=== PATIENT | male | born 1940 | race Caucasian/White ===

== ENCOUNTER → 2016-10-21 | Outpatient (CLI) | payer OTHER ==
[2016-10-21 13:35] LABS: ALT/SGPT 18 U/L (12-78); AST/SGOT 16 U/L (15-37); BLOOD UREA NITROGEN 18 mg/dl (7-18); BUN/CREATININE RATIO 15.1 (10-20); CALCIUM 8.6 mg/dl (8.5-10.1); CARBON DIOXIDE 29 mmol/L (21-32); CHLORIDE 107 mmol/L (98-107); GLUCOSE 86 mg/dl (70-99); POTASSIUM 3.6 mmol/L (3.5-5.1); SODIUM 142 mmol/L (136-145)
[2016-10-21 13:38] LABS: ALB/GLOB RATIO 0.9 (0.9-2); ALKALINE PHOSPHATASE 135 U/L (45-117); CHOLESTEROL 156 mg/dl (0-200); CHOLESTEROL/HDL RATIO 3.2; HDL CHOLESTEROL 49 mg/dl; LDL CHOLESTEROL CALCULATED 90 mg/dl; TRIGLYCERIDES 87 mg/dl (0-150); VERY LOW DENSITY LIPOPROT CALC 17 mg/dl
== END | disposition home or self-care (01) ==
LOC: C.LABPBG 08:38
PROVIDERS: ATTEND Family Medicine
DX: M25.561 Pain in right knee (principal); M25.562 Pain in left knee; G25.81 Restless legs syndrome; I10 Essential (primary) hypertension; E78.5 Hyperlipidemia, unspecified; F41.8 Other specified anxiety disorders

== ENCOUNTER → 2017-05-12 | Outpatient (CLI) | payer OTHER ==
[2017-05-12 12:34] LABS: HEMATOCRIT 37.7 % (42-52); MEAN CELL VOLUME 88.7 fL (80-100); MEAN CORPUSCULAR HEMOGLOBIN 29.2 pg (25-34); MEAN CORPUSCULAR HGB CONC 32.9 g/dl (32-36); MEAN PLATELET VOLUME 10.4 fL (7.4-10.4); PLATELET COUNT 295 K/uL (130-400); RED BLOOD COUNT 4.25 M/uL (4.7-6.1); WHITE BLOOD COUNT 7.88 K/uL (4.8-10.8)
[2017-05-12 13:08] LABS: ALT/SGPT 16 U/L (12-78); AST/SGOT 15 U/L (15-37); BLOOD UREA NITROGEN 19 mg/dl (7-18); BUN/CREATININE RATIO 16.1 (10-20); CALCIUM 8.2 mg/dl (8.5-10.1); CARBON DIOXIDE 28 mmol/L (21-32); CHLORIDE 107 mmol/L (98-107); GLUCOSE 83 mg/dl (70-99); HDL CHOLESTEROL 48 mg/dl; POTASSIUM 3.4 mmol/L (3.5-5.1); SODIUM 142 mmol/L (136-145)
[2017-05-12 13:10] LABS: ALB/GLOB RATIO 0.9 (0.9-2); ALKALINE PHOSPHATASE 108 U/L (45-117); CHOLESTEROL 134 mg/dl (0-200); CHOLESTEROL/HDL RATIO 2.8; LDL CHOLESTEROL CALCULATED 70 mg/dl; TRIGLYCERIDES 78 mg/dl (0-150); VERY LOW DENSITY LIPOPROT CALC 16 mg/dl
== END | disposition home or self-care (01) ==
LOC: C.LABPBG 07:37
PROVIDERS: ATTEND Family Medicine
DX: I10 Essential (primary) hypertension (principal); E78.5 Hyperlipidemia, unspecified

== ENCOUNTER → 2017-06-16 | Outpatient (CLI) | payer OTHER ==
[2017-06-16 12:53] LABS: BASO % 0.4 %; BASO ABS # 0.03 K/uL (0-0.2); COMPLETE YES; EOS % 1.3 %; HEMATOCRIT 38.4 % (42-52); IG% 0.4 %; LYMPH % 27.9 %; LYMPH ABS # 1.98 K/uL (1.2-3.4); MEAN CORPUSCULAR HEMOGLOBIN 30.3 pg (25-34); MEAN CORPUSCULAR HGB CONC 33.3 g/dl (32-36); MEAN PLATELET VOLUME 9.8 fL (7.4-10.4); MONO % 9.7 %; NEUT % 60.3 %; PLATELET COUNT 281 K/uL (130-400); RED BLOOD COUNT 4.22 M/uL (4.7-6.1); WHITE BLOOD COUNT 7.09 K/uL (4.8-10.8)
[2017-06-16 13:17] LABS: BLOOD UREA NITROGEN 20 mg/dl (7-18); BUN/CREATININE RATIO 16.5 (10-20); CALCIUM 8.9 mg/dl (8.5-10.1); CARBON DIOXIDE 27 mmol/L (21-32); CHLORIDE 105 mmol/L (98-107); CREATININE 1.23 mg/dl (0.60-1.40); GLUCOSE 88 mg/dl (70-99); MAGNESIUM 1.6 mg/dl (1.8-2.4); POTASSIUM 3.7 mmol/L (3.5-5.1); SODIUM 139 mmol/L (136-145)
[2017-06-16 13:22] LABS: FERRITIN 274.8 ng/ml (8.0-388.0); TOTAL IRON BINDING CAPACITY 311 mcg/dl (250-450)
== END | disposition home or self-care (01) ==
LOC: C.LABPBG 07:53
PROVIDERS: ATTEND Family Medicine
DX: E87.6 Hypokalemia (principal); D64.9 Anemia, unspecified

== ENCOUNTER 2023-12-14 09:20 | Observation (INO) ==
--- NOTE | 2023-11-17 12:59 | PAT Medication Instructions ---
Medication Instructions Date of Service November 17, 2023 Home Medications Medication Instructions Recorded compress.stocking,knee,reg,med #2 ea 06/21/22 omeprazole 20 mg capsule,delayed 20 mg PO DAILY PRN acid reflux #90 03/10/23 release caps aspirin 81 mg tablet,delayed release (Adult Aspirin Regimen) 81 mg PO QAM calcium phosphate 250 mg-vitamin D3 10 mcg (400 unit) chewable tablet (Caltrate Gummy Bites) 1 tab PO QAM ferrous sulfate 325 mg (65 mg iron) tablet (FeroSul) 325 mg PO Q2D omeprazole 20 mg capsule,delayed release 20 mg PO DAILY PRN acid reflux furosemide 20 mg tablet (Lasix) 20 mg PO QAM duloxetine 30 mg capsule,delayed release 30 mg PO QAM potassium chloride 10 mEq tablet,extended release 10 meq PO QAM DO NOT take the morning of surgery calcium phosphate 250 mg-vitamin D3 10 mcg (400 unit) chewable tablet (Caltrate Gummy Bites) 1 tab PO QAM ferrous sulfate 325 mg (65 mg iron) tablet (FeroSul) 325 mg PO Q2D furosemide 20 mg tablet (Lasix) 20 mg PO QAM potassium chloride 10 mEq tablet,extended release 10 meq PO QAM Take morning of surgery With a small sip of water, OTHERWISE NOTHING TO EAT OR DRINK AFTER MIDNIGHT: aspirin 81 mg tablet,delayed release (Adult Aspirin Regimen) 81 mg PO QAM (unless surgeon directed otherwise) omeprazole 20 mg capsule,delayed release 20 mg PO DAILY PRN acid reflux (if needed) duloxetine 30 mg capsule,delayed release 30 mg PO QAM Take evening before surgery omeprazole 20 mg capsule,delayed release 20 mg PO DAILY PRN acid reflux (if needed) Other Notes If you have any questions please call us at [phone] or [phone] or [phone] or [phone]
--- NOTE | 2023-11-23 09:16 | Anesthesiology Consultation ---
Date of Service November 23, 2023 Assessment & Plan (1) Encounter for pre-operative examination: Chart Review Chart Review: Acceptable Risk for Surgery (pending PCP clearance 12/06/23) and Patient seen in Pre Admission Testing - Awaiting PCP clearance 12/06/23 ([place]) - Patient is NOT an ideal OPJ candidate (currently 23 hour obs) Per PAT appt on 11/23/23, no recent illness/disease exposures, illness related symptoms, or recent illness/disease positive tests. Will leave to surgeon's discretion if preop Covid testing needed Teaching & Discussion Pre-Anesthesia Teaching/Discussion Notes: Instructed NPO after midnight before surgery,except medications with 15 cc of water. Medication instructions provided according to the PAT guidelines. History Surgery Operation Date: 12/14/23 07:15 Proposed Procedures p Left Total Knee Arthroplasty - Nixon Myers MD Height/Weight Height: 5 ft 11 in Weight: 65.7 kg Allergies Allergy/AdvReac Type Severity Reaction Status Date / Time No Known Drug Allergies Allergy Verified 11/16/23 11:01 Medications Home Medications Medication Instructions Recorded Confirmed Last Taken aspirin 81 mg tablet,delayed 81 mg PO QAM 05/30/20 11/16/23 Unknown release (Adult Aspirin Regimen) compress.stocking,knee,reg,med #2 ea 06/21/22 06/06/23 Unknown calcium phosphate 250 mg-vitamin 1 tab PO QAM 09/21/22 11/16/23 Unknown D3 10 mcg (400 unit) chewable tablet (Caltrate Gummy Bites) ferrous sulfate 325 mg (65 mg 325 mg PO Q2D 01/25/23 11/16/23 Unknown iron) tablet (FeroSul) omeprazole 20 mg capsule,delayed 20 mg PO DAILY PRN acid reflux #90 03/10/23 11/16/23 Unknown release caps furosemide 20 mg tablet (Lasix) 20 mg PO QAM 06/06/23 11/16/23 Unknown duloxetine 30 mg capsule,delayed 30 mg PO QAM 11/16/23 11/16/23 Unknown release potassium chloride 10 mEq 10 meq PO QAM 11/16/23 11/16/23 Unknown tablet,extended release Past Medical History Medical History Acid reflux occasional - improved with Omeprazole Anemia likely multifactorial in setting of chronic disease and iron/b12 deficiency per PCP records Benign essential hypertension Chronic kidney disease, stage 3 (moderate) Cognitive impairment "no major issues" per dtr Depression with anxiety Eczema Hyperlipidemia hx-no current meds Restless legs Exercise / Class Metabolic Activity III < 4 Walking/Shop/Light housework (no chest pain or SOB with flat surface ambulation- uses cane ) Past Family History Family History Mother No known health problems Father Stroke Denies family history of Ovarian cancer Prostate cancer Breast cancer Lung cancer Colorectal cancer Past Surgical History Surgical History Hx of colonoscopy S/P hemorrhoidectomy Past Anesthesia History No Hx of Anesthesia Complications and No Family Hx of Anesthesia Complications History of PONV No Hx of PONV and No Hx of Motion Sickness Social History Smoking Status: Never smoker tobacco type: smokeless tobacco Do You Dip or Chew Tobacco: Yes (1 can/day; advised) Hx Alcohol Use: Yes Alcohol type: beer alcohol intake frequency: holidays/special occasions only Hx Substance Use: No substance use type: does not use Review of Systems Patient denies chest pain, shortness of breath, dyspnea on exertion, cough, wheezing, palpitations. No hx of seizures, stroke, PR, apnea/snoring. No hx of blood clots or blood transfusions Physical Exam Vital Signs VITALS BP 170/78 (usually in 130s systolically- will recheck once home later today and call PCP if still elevated; does follow up with PCP prior to surgery) P 61 TEMP 98.0 SP02 100% RESP 16 Constitutional no acute distress ENMT Mouth: no TMJ clicking Thyromental Distance: > or= 3.5 Finger Breadths (3.5) Mallampati Class: II Full upper denture Neck + limited neck extension (mild) Respiratory normal respiratory effort; no respiratory distress Auscultation: lungs clear to auscultation bilaterally; no wheezes Cardiovascular Rate/Rhythm: regular rate and regular rhythm Heart Sounds: no murmur Vessels: no carotid bruit Musculoskeletal Spine: no pain with cervical ROM Extremities: extremities normal to inspection Psychiatric Orientation: alert Lab Results Anesthesia Preop Results Results Anesthesia Widget: WBC 9.38 K/ul (4.8-10.8) 11/23/23 Hgb 11.3 g/dl (14.0-18.0) L 11/23/23 Hct 34.9 % (42.0-52.0) L 11/23/23 Plt 345 K/uL (130-400) 11/23/23 Na 140 mmol/L (136-145) 11/23/23 K 4.1 mmol/L (3.5-5.1) 11/23/23 Cl 105 mmol/L (98-107) 11/23/23 CO2 27 mmol/L (21-32) 11/23/23 BUN 24 mg/dl (6-23) H 11/23/23 Creat 1.32 mg/dl (0.6-1.4) 11/23/23 Glucose Level 93 mg/dl (70-99(Fasting)) 11/23/23 PT 10.7 Seconds (9.0-12.0) 11/23/23 PTT 30 Seconds (21-31) 11/23/23 INR 1.0 (0.9-1.1) 11/23/23 Urine Color Yellow 11/23/23 Urine Appearance Clear (Clear) 11/23/23 Urine pH 5.5 (4.5-7.5) 11/23/23 Urine Specific [place] 1.011 (1.000-1.030) 11/23/23 Urine Protein Negative (Negative) 11/23/23 Urine Glucose (UA) Negative (Negative) 11/23/23 Urine Ketones Negative (Negative) 11/23/23 Urine Blood Negative (Negative) 11/23/23 Urine Nitrite Negative (Negative) 11/23/23 Urine Bilirubin Negative (Negative) 11/23/23 Urine Urobilinogen Negative (Negative) 11/23/23 Urine Leukocyte Esterase Negative (Negative) 11/23/23 Blood Type O Positive 11/23/23 Antibody Screen NEGATIVE 11/23/23 Testing Laboratory Results Anemia- chronic and stable from previous Electrocardiogram Ectopic atrial rhythm at 60bpm (Discussed with Dr. Watts- patient not complaining of any cardiac symptoms- has PCP clearance scheduled- can proceed as scheduled at this time) Chest X-Ray Date: 11/23/23 Findings: + NAD
--- NOTE | 2023-11-27 10:25 | History & Physical Report ---
Date of Service November 27, 2023 Assessment & Plan (1) Bilateral primary osteoarthritis of knee: Plan: Severe end-stage bilateral knee osteoarthritis. Most symptomatic on the left. Proceed with left knee replacement. Risk and benefits discussed. History of Present Illness Chief Complaint: Chronic bilateral knee pain left greater than right Primary Care Provider: Jaqueline Maldonado DO 83-year-old male with chronic bilateral knee pain left greater than right with severe end-stage bilateral knee osteoarthritis. Failure of conservative management. Patient denies headaches, sweats, fevers, chills, double vision, blurred vision, cough, sore throat, dysphagia, chest pain, sob, wheezing, n/v/d/c, numbness, tingling, fatigue, urinary symptoms, mood disorders. ROS positive for hypertension, anxiety/depression, anemia, acid reflux. Allergies Allergy/AdvReac Type Severity Reaction Status Date / Time No Known Drug Allergies Allergy Verified 11/16/23 11:01 Home Medications Medication Instructions Recorded Confirmed Type aspirin 81 mg tablet,delayed 81 mg PO QAM 05/30/20 11/16/23 History release (Adult Aspirin Regimen) compress.stocking,knee,reg,med #2 ea 06/21/22 06/06/23 Rx calcium phosphate 250 mg-vitamin 1 tab PO QAM 09/21/22 11/16/23 History D3 10 mcg (400 unit) chewable tablet (Caltrate Gummy Bites) ferrous sulfate 325 mg (65 mg 325 mg PO Q2D 01/25/23 11/16/23 History iron) tablet (FeroSul) omeprazole 20 mg capsule,delayed 20 mg PO DAILY PRN acid reflux #90 03/10/23 11/16/23 Rx release caps furosemide 20 mg tablet (Lasix) 20 mg PO QAM 06/06/23 11/16/23 History duloxetine 30 mg capsule,delayed 30 mg PO QAM 11/16/23 11/16/23 History release potassium chloride 10 mEq 10 meq PO QAM 11/16/23 11/16/23 History tablet,extended release Past Med/Surg History Medical History Chronic kidney disease, stage 3 (moderate) Acid reflux occasional - improved with Omeprazole Anemia likely multifactorial in setting of chronic disease and iron/b12 deficiency per PCP records Benign essential hypertension Cognitive impairment "no major issues" per dtr Depression with anxiety Eczema Hyperlipidemia hx-no current meds Restless legs Surgical History Hx of colonoscopy S/P hemorrhoidectomy Family History Mother No known health problems Father Stroke Denies family history of Ovarian cancer Prostate cancer Breast cancer Lung cancer Colorectal cancer Social History Smoking Status: Never smoker Tobacco Type: Smokeless Tobacco (Dip or Chew) Age Started Using Tobacco: 13; Second Hand Exposure: Yes (hx- smoked); Do You Dip or Chew Tobacco: Yes (1 can/day; advised); Hx Alcohol Use: Yes Alcohol type: beer Alcohol Intake Frequency: 4 or More x per/Week Alcohol Intake Frequency Comment: a beer a day Hx Substance Use: No Preferred Language: [place] Communication Ability: Effective Visual Impairment: Limited Hearing Ability: Normal Resource Recovery Specialist Required: No Beliefs That Will Affect Care: None marital status: / marital status details: lost in Sep 2020 Current Living Situation: Alone current occupational status: retired How many Children do You have: 1 Feels Safe at Home: Yes Childhood Exposure to Second-Hand Smoke: No Diet: regular Diet Comment: regular caffeine: Yes (tea) during the past year weight has: remained stable Dental Care, Regularly: Yes Physical Activity Frequency: Daily Seatbelt Use: always Sunscreen Use: No Assistive Devices: Denture - Upper, Denture - Lower and Glasses Review of Systems All systems reviewed & are unremarkable except as noted in HPI & below Physical Exam Constitutional: WD/WN, vitals as above Respiratory: normal respiratory effort; no respiratory distress Cardiovascular: Rate/Rhythm: regular rate and regular rhythm Musculoskeletal: Antalgic gait bilateral varus knees bilateral mild effusion bilateral 20 to 90 degrees range of motion bilateral. Normal strength. Chronic edema left leg with lymphedema with venous stasis disease negative ultrasound. Skin: no rashes, warm and dry Neurologic: normal touch/pain/proprioception Psychiatric: A+Ox3, euthymic affect Results & Data Diagnostic Findings Tricompartmental osteoarthritis mainly medial compartment and patellofemoral joint with [id number] medial compartment with some subluxation femur medial and tibia, some bone loss, some evidence of chondrocalcinosis and lateral meniscus bilateral. Level of arthritis equal to both knees with severe end- stage arthritis both knees.
[~2023-12-14 09:20] MED LIST: BUPIVACAINE 0.5 % 5 MG/1 ML PF 10ML VIAL ONE; DEXAMETHASONE SOD INJ 4 MG/ML VIAL ONE; LIDOCAINE 2% 2 ML VIAL/AMP(20MG/ML) INFIL ONE; ONDANSETRON INJ 2 MG/ML 2 ML VIAL ONE; PROPOFOL IV EMULSION 10 MG/ML 20 ML VIAL IV ONE; ROPIVACAINE 0.5% 5 MG/ML 30 ML VIAL ONE; fentaNYL citrate PF 100 MCG/2 ML VIAL ONE
--- NOTE | 2023-12-14 09:38 | History & Physical Bridge Note ---
Date of Service December 14, 2023 History & Physical Bridge Note I have examined the patient, reviewed the History & Physical and in the interval since the performance of the History & Physical I have noted the following changes of clinical significance: no changes noted
[2023-12-14] MEDS: ACETAMINOPHEN 500 MG TAB PO SCH ×2 (09:48→15:44)
[2023-12-14] MEDS: CeleBREX 200 MG CAP PO SCH (09:49)
[2023-12-14] MEDS: LR 60ML/HR IV SCH (09:49)
[2023-12-14] MEDS: METOCLOPRAMIDE HCL 10 MG TABLET PO SCH (09:49)
[2023-12-14] MEDS: FAMOTIDINE 20 MG TAB PO SCH (09:49)
[2023-12-14] MEDS: GABAPENTIN 300 MG CAP PO SCH (09:49)
[2023-12-14] MEDS: dexAMETHasone**PF** 10 MG/ML VIAL IV SCH (09:50)
[2023-12-14] MEDS: LR 500ML BOLUS, THEN 15ML/HR IV SCH (10:05)
[2023-12-14] MEDS ORDERED: ePHEDrine sulfate 50 MG/ML AMP IV PRN (10:50)
[2023-12-14] MEDS ORDERED: PROMETHAZINE HCL 6.25 MG in SODIUM CHLORIDE 0.9% 50 ML IV PRN (10:50)
[2023-12-14] MEDS ORDERED: HYDROmorphone INJ 1 MG/ML SYRINGE IV PRN (10:50)
[2023-12-14] MEDS ORDERED: ATROPINE SULFATE 0.1 MG/ML 10ML SYR IV PRN (10:50)
[2023-12-14] MEDS: TRANEXAMIC ACID 1,000 MG **IV Pre-op IV SCH (10:58)
[2023-12-14] MEDS: ceFAZolin 2000MG 2,000 MG/15 ML SYR IV SCH (11:15)
[2023-12-14] MEDS: ORTHO JOINT ANESTHETIC ONE (12:02)
[2023-12-14] MEDS ORDERED: ePHEDrine sulfate 50 MG/ML AMP ONE (12:07)
[2023-12-14] MEDS: ROPIV 0.5% 246mg, Ketorolac 30mg, EPINEPHrine 0.5mg in NSS INFIL SCH (12:28)
[2023-12-14] MEDS: TRANEXAMIC ACID 1,000 MG **IV Intra-op IV SCH (13:00)
--- NOTE | 2023-12-14 13:15 | Operative Report ---
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 Left knee has a flexion contracture varus knee with ra diographs demonstrate [id number] medial compartment with bone loss medial compartment Description of Procedure Patient taken to the operating room the size under spinal MAC regional block anesthesia. Patient was placed supine on the operating table. A pneumatic tourniquet was placed about the left upper thigh. The left lower extremity was prepped and draped in sterile fashion. Knee exam demonstrated relatively thin leg with 15 to 20 degree flexion contracture with further flexion to 125 degrees. There is no pseudolaxity.. The leg was elevated exsanguinated with an Esmarch bandage and pneumatic tourniquet was raised to 275 millimeters of mercury. Skin incised sharply in longitudinal fashion. Subcutaneous flaps elevated. Incision was made through the medial retinaculum extending up in the mid third of the quadriceps tendon and down to the medial tibial tubercle. Intra-articular findings demonstrated severe end-stage medial compartment osteoarthritis bone loss the medial compartment and tricompartmental arthritic changes grade 3 changes other compartments. Chronic ACL tear. There were calcium deposits throughout the knee embedded into the articular surfaces and into the synovium with very edematous thickened synovium in the suprapatellar pouch some areas with calcium deposits within that synovial tissue. The [employer] triathlon total knee arthroplasty system was used. To expose the knee the infrapatellar fat pad was resected. The meniscal remnants and cruciate ligaments were resected. The anterior fat pad over the femur in the area of the location of the anterior flange of the femoral component was resected. Multiple calcium deposits were removed including a partial synovectomy using electrocautery synovectomy technique to remove the thickened inflamed synovium and suprapatellar pouch. The calcium deposits that were embedded in the synovium were removed along with the synovium tissue. The lateral synovial bands were released. The femur was exposed. An intramedullary drill hole was made into the canal. A guide maria was placed. Distal femoral cutting guide was adjusted to resect a 5 degree valgus cut with 10 millimeters distal femur resected. The knee was extended and a subperiosteal peel lateral release was performed around the patella. Patella width was measured and width was reproduced using a freehand cut technique and a 36 symmetrical patella component. The 3 drill holes were made and the excess lateral facet was beveled off to prevent any impingement. Attention was taken back to the femur which was exposed with retractors and the femoral sizing guide was pinned in position. The drill holes were placed in 3 of external rotation to match the epicondylar axis. The femur sized for a 6 left component. The 4-in-1 cutting block was placed and then the anterior posterior and chamfer cuts are made. The tibia was then subluxed. The external tibial cutting guide was adjusted to make a perpendicular cut to the long axis of the tibia below the most deficient bone loss side. Cut was adjusted for slope. A lamina superintendent transmission was used and the flexion extension gaps were balanced. Minimal medial releases were required. All posterior osteophytes removed. All meniscal remnants were resected. The tibia exposed and the trial tibial component size 5 was externally rotated in line with the tibial tubercle and pinned in position. The punch for stem was used. The notch cutting device was centered appropriately and the femoral notch cut was made. The femoral trial was inserted. Trial tibial inserts were placed and size 11 PS gave balanced ligaments through flexion and extension. Patella tracking was assessed. The patella tracked centrally. The trial components were then removed and the orthomix anesthetic cocktail was injected per protocol. The knee was then copiously irrigated with pulsatile lavage saline solution. Final components were then cemented with Refobacin cement. Xperience irrigation placed over metal compoments prior to polyethylene insertion. Final components were Nirav triathlon size 6 left posterior stabilized femoral component, size 5 tibial primary baseplate with a 11 mm X.3 polyethylene tibial bearing insert and a X.3 polyethylene 36 x 10 mm patella. After the cement cured further pulsatile lavage irrigation was then performed with Xperience and 2 Hemovac drains were brought out laterally. The quadriceps tendon and medial retinaculum were closed with figure of 8 #1 Vicryl sutures. The knee was taken through full range of motion and the repair was secure. Knee range of motion was 0 through 130 degrees. The subcutaneous tissues were closed with 2-0 Vicryl sutures. Skin was closed with surgical glue luz marina. Lisandro and Acticoat superficial wound VAC was applied. The patient tolerated the procedure well. Turner MALONEY was my physician assistant professor of mathematics who participated as reference assistant and was involved in all aspects of the procedure including patient positioning prepping and draping,leg positioning ,soft tissue retraction and instrument management and participated in the closing and superficial wound VAC and will p articipate in postoperative care of the patient. The patient tolerated the procedure well. I attest to the content of the Intraoperative Record and any orders documented therein. Any exceptions are noted below.
[2023-12-14] MEDS ORDERED: MAGNESIUM HYDROXIDE SUSP 30 ML UDC PO PRN (14:46)
[2023-12-14] MEDS ORDERED: ONDANSETRON INJ 2 MG/ML 2 ML VIAL IV PRN (14:46)
[2023-12-14] MEDS ORDERED: NALOXONE HCL 0.4 MG/1 ML VIAL/CARP IV PRN (14:46)
[2023-12-14] MEDS ORDERED: bisacodyL 10 MG SUPP PR PRN (14:46)
[2023-12-14] MEDS ORDERED: diphenhydrAMINE 50 MG/ML VIAL IV PRN (14:46)
[2023-12-14] MEDS ORDERED: HYDROmorphone INJ 0.5 MG/0.5 ML SYR IV PRN (14:46)
--- NOTE | 2023-12-14 15:01 | Anesthesiology Progress Note ---
Date of Service December 14, 2023 Anesthesia Post Procedure Vital Signs Vital Signs: Temp Pulse Pulse Resp BP Pulse Ox O2 Del Method 12/14/23 14:40 36.5 C 65 20 129/64 98 Room Air 12/14/23 14:30 37.1 C 67 15 137/65 97 Room Air 12/14/23 14:20 37.1 C 68 16 125/62 97 Room Air 12/14/23 14:10 66 18 130/63 98 Room Air 12/14/23 14:00 71 17 121/70 100 Room Air 12/14/23 13:50 69 16 121/60 100 Oxymask 12/14/23 13:41 36.8 C 75 18 111/49 L 100 Oxymask 12/14/23 09:47 36.8 C 69 20 154/65 H 99 Room Air O2 Flow Rate 12/14/23 14:40 12/14/23 14:30 12/14/23 14:20 12/14/23 14:10 12/14/23 14:00 12/14/23 13:50 3 12/14/23 13:41 5 12/14/23 09:47 Pain Intensity Left Knee: Pain Intensity: 0 Transfer of Care Handoff Completed per policy Notes Mental Status: alert / awake / arousable and participated in evaluation Nausea / Vomiting: adequately controlled Pain: adequately controlled Airway Patency, RR, SpO2: stable & adequate BP & HR: stable & adequate Hydration State: stable & adequate Anesthetic Complications: no major complications apparent and Pt Satisfied with anesthetic care
--- NOTE | 2023-12-14 15:10 | XRay Report ---
LEFT KNEE 2 VIEWS History: Left total knee arthroplasty. Degenerative arthritis. Postop. FINDINGS: The patient is status post a left total knee arthroplasty. The hardware is intact. No fract ure or dislocation. Skin luz marina and surgical drains are in place. IMPRESSION: Left total knee arthroplasty. No evidence for hardware complication. ACT 112: Negative or not required by law. Electronically signed by: Esau Heath M.D. 12/14/2023 3:08 PM
[2023-12-14] MEDS: SODIUM CHLORIDE 0.9% 1,000 ML IV SCH (15:44)
[2023-12-14] MEDS: ceFAZolin 1000MG 1,000 MG/7.5 ML SYR IV SCH (20:33)
[2023-12-14] MEDS: SENNA 8.6 MG TAB PO SCH (20:33)
[2023-12-14] MEDS: ASPIRIN 81 MG ECTAB PO SCH (20:34)
[2023-12-14] MEDS: DOCUSATE SODIUM 100 MG CAP PO SCH (20:34)
[2023-12-15 06:24] LABS: Hematocrit (blood only) 32.1 % (42.0-52.0); Hemoglobin 10.7 g/dl (14.0-18.0); Mean Corpuscular Hemoglobin 30.1 pg (25.0-34.0); Mean Corpuscular Hgb Conc 33.3 g/dL (32.0-36.0); Mean Corpuscular Volume 90.2 fL (80.0-100.0); Mean Platelet Volume 9.6 fL (9.4-12.4); Platelet Count 328 K/uL (130-400); RDW Coefficient of Variation 13.4 % (11.5-14.5); RDW Standard Deviation 44.2 fL (36.4-46.3); Red Blood Count 3.56 M/uL (4.70-6.10); White Blood Count 20.36 K/ul (4.8-10.8)
[2023-12-15 06:50] LABS: BUN Creatinine Ratio 18.2 (10-20); Calcium 6.4 mg/dl (8.6-10.3); Creatinine Clr Calc Pharmacy 29.3 ml/min; Est GFR (African American) 40.8 ml/min; Est GFR (Non-African American) 35.2 ml/min; Potassium 4.2 mmol/L (3.5-5.1)
[2023-12-15] MEDS: DULoxetine HCL 30 MG CAP PO SCH (08:07)
[2023-12-15] MEDS: PANTOprazole 40 MG TAB PO SCH (08:07)
[2023-12-15] MEDS: MULTIVITAMIN TAB PO SCH (08:07)
[2023-12-15] MEDS: POTASSIUM CHLORIDE 10 MEQ TABCR PO SCH (08:07)
--- NOTE | 2023-12-15 08:37 | Orthopedic Progress Note ---
Date of Service December 15, 2023 Assessment & Plan (1) Bilateral primary osteoarthritis of knee: Plan: POD 1 s/p left total knee arthroplasty PT/OT protocols. Weightbearing as tolerated. DVT prophylaxis-aspirin p.o. twice daily, Chris, GENESIS garcia. Pain management as written. Leukocytosis-likely secondary to preoperative steroids and or surgical stress. Patient currently asymptomatic. DC planning-patient is planning for home health services upon discharge. Admission and Anticipated Discharge Date Admission Date: December 14, 2023 Subjective Postop day 1 patient sitting at the bedside eating breakfast. Complains of some mild discomfort proximal to the patella. No other complaints at this time. Denies shortness of breath, chest pain, lightheadedness. Patient is hoping to go home today. Physical Exam Physical Exam: Dressings are clean, dry, and intact. Calves are soft nontender. Neurovascular intact. Toes are mobile. He has good dorsiflexion plantarflexion of the left foot. HV drainage 50cc this AM. Results & Data Vital Signs (Past 12 Hours) Vital Signs Temp Pulse Pulse Resp BP Pulse Ox O2 Del Method 12/15/23 07:17 36.5 C 67 18 152/80 H 99 Room Air 12/15/23 03:17 36.8 C 67 16 156/72 H 97 Room Air 12/14/23 23:14 36.5 C 67 16 150/74 H 97 Room Air Laboratory Results Laboratory Results WBC 20.36 K/ul (4.8-10.8) H 12/15/23 05:34 RBC 3.56 M/uL (4.70-6.10) L 12/15/23 05:34 Hgb 10.7 g/dl (14.0-18.0) L 12/15/23 05:34 Hct 32.1 % (42.0-52.0) L 12/15/23 05:34 MCV 90.2 fL (80.0-100.0) 12/15/23 05:34 MCH 30.1 pg (25.0-34.0) 12/15/23 05:34 MCHC 33.3 g/dL (32.0-36.0) 12/15/23 05:34 RDW Std Deviation 44.2 fL (36.4-46.3) 12/15/23 05:34 RDW Coeff of Preet 13.4 % (11.5-14.5) 12/15/23 05:34 Plt Count 328 K/uL (130-400) 12/15/23 05:34 MPV 9.6 fL (9.4-12.4) 12/15/23 05:34 Sodium 140 mmol/L (136-145) 12/15/23 05:34 Potassium 4.2 mmol/L (3.5-5.1) 12/15/23 05:34 Chloride 104 mmol/L (98-107) 12/15/23 05:34 Carbon Dioxide 24 mmol/L (21-32) 12/15/23 05:34 Anion Gap 12 (3-11) H 12/15/23 05:34 BUN 32 mg/dl (6-23) H 12/15/23 05:34 Creatinine 1.76 mg/dl (0.6-1.4) H 12/15/23 05:34 Est Cr Clr Drug Dosing 29.3 ml/min 12/15/23 05:34 Est GFR ( Amer) 40.8 ml/min 12/15/23 05:34 Est GFR (Non-Af Amer) 35.2 ml/min 12/15/23 05:34 BUN/Creatinine Ratio 18.2 (10-20) 12/15/23 05:34 Glucose 114 mg/dl (70-99(Fasting)) H 12/15/23 05:34 Calcium 6.4 mg/dl (8.6-10.3) L 12/15/23 05:34 Impressions Knee X-Ray 12/14/23 13:48 LEFT KNEE 2 VIEWS History: Left total knee arthroplasty. Degenerative arthritis. Postop. FINDINGS: The patient is status post a left total knee arthroplasty. The hardware is intact. No fracture or dislocation. Skin luz marina and surgical drains are in place. IMPRESSION: Left total knee arthroplasty. No evidence for hardware complication. ACT 112: Negative or not required by law. Electronically signed by: Esau Heath M.D. 12/14/2023 3:08 PM
--- NOTE | 2023-12-15 09:02 | Hospitalist Consultation ---
Date of Consultation December 15, 2023 Assessment & Plan (1) S/P total knee arthroplasty: S/p left TKA on 12/13, doing well postoperatively Leukocytosis of 20 likely secondary to intraoperative steroids and stress response Pain control, bowel regimen, management postop as per orthopedic surgery Wound vac in place and will go home with this (2) Chronic kidney disease, stage 3 (moderate): Baseline creatinine 1.3, here with acute kidney injury with creatinine up to 1.76 Give 1 L of LR at 125 MLS per hour today, repeat BMP at 1200 and if improved, can go home and follow as outpt. He is eating and drinking Bladder scan as feels he is having trouble voiding Avoid nephrotoxic agents and ensure proper renal dosing of medications Holding home Lasix and will also hold home potassium while not on Lasix-HOLD lasix on discharge until seen by PCP (3) Hypocalcemia: Ca++ level low at 6.4, most recent Vit D level normal 1 year ago give IV calcium 1000mg today and f/u with PCP to repeat vit D levels, etc as outpt (4) Anemia: Mild, hemoglobin 10.7 down from baseline of 11.3 postoperatively Previous history of B12 deficiency but most recent levels are normal and he is not on supplementation as per home medication list Is on iron pills-continue Follow CBC as outpt (5) Acid reflux: No acute issues, continue PPI (6) Benign essential hypertension: Blood pressures mildly elevated Home Lasix is on hold and will continue to hold Follow blood pressures (7) Depression with anxiety: No acute issues, continue home Cymbalta (8) Hyperlipidemia: Not currently on medication (9) Restless legs: Not on medication for such, continue iron replacement Plan DVT prophylaxis-SCDs, GENESIS hose, aspirin twice daily Disposition-ok to discharge to home if repeat creatinine improved and not retaining urine on bladder scan discussed care with Ortho AMARA Tompkins History of Present Illness Reason for Consultation: Postop management Requesting Physician: Dr. Myers Attending Physician: Nixon Myers MD History of Present Illness This patient is an 83-year-old male with a history of CKD stage III, B12 and iron deficiency anemia, HTN, depression/anxiety, hyperlipidemia, bilateral OA of knees, GERD, lumbar radiculopathy, and chronic venous insufficiency who was admitted to the hospital after having left total knee arthroplasty on 12/14/2023. He feels well on POD#1 and is anxious to get home. He has mild painin left knee. Denies headache, lightheadedness, nausea, abd pain, CP, or SOB. He moved his bowels this AM. He does feel like he needs to urinate but can't get his urine out. I discussed his care with AMARA Tompkins with Ortho Allergies Allergy/AdvReac Type Severity Reaction Status Date / Time No Known Drug Allergies Allergy Verified 12/14/23 09:52 Home Medications Medication Instructions Recorded Confirmed Type aspirin 81 mg tablet,delayed 81 mg PO QAM 05/30/20 12/14/23 History release (Adult Aspirin Regimen) compress.stocking,knee,reg,med #2 ea 06/21/22 12/06/23 Rx calcium phosphate 250 mg-vitamin 1 tab PO QAM 09/21/22 12/14/23 History D3 10 mcg (400 unit) chewable tablet (Caltrate Gummy Bites) ferrous sulfate 325 mg (65 mg 325 mg PO Q2D 01/25/23 12/14/23 History iron) tablet (FeroSul) duloxetine 30 mg capsule,delayed 30 mg PO QAM 11/16/23 12/14/23 History release potassium chloride 10 mEq 10 meq PO QAM 11/16/23 12/14/23 History tablet,extended release omeprazole 20 mg capsule,delayed 20 mg PO DAILY PRN acid reflux #90 11/30/23 12/14/23 Rx release caps furosemide 20 mg tablet (Lasix) See Rx Instructions PO QAM #60 tabs 12/06/23 12/14/23 Rx acetaminophen 500 mg tablet 1,000 mg (2 x 500 mg) PO Q8 14 12/15/23 Rx (Tylenol Extra Strength) days #84 tabs aspirin 81 mg tablet,delayed 81 mg PO BID 30 days #60 tabs 12/15/23 Rx release oxycodone 5 mg tablet 5 mg PO Q4H PRN pain #30 tabs 12/15/23 Rx polyethylene glycol 3350 17 gram 17 g PO DAILY PRN constipation #5 12/15/23 Rx oral powder packet (Miralax) ea Patient History Medical History Osteoarthritis Chronic kidney disease, stage 3 (moderate) Acid reflux occasional - improved with Omeprazole Anemia likely multifactorial in setting of chronic disease and iron/b12 deficiency per PCP records Benign essential hypertension Cognitive impairment "no major issues" per dtr Depression with anxiety Eczema Hyperlipidemia hx-no current meds Restless legs Surgical History (Updated 12/15/23 @ 09:04 by Juliana Rogers MD) S/P total knee arthroplasty Hx of colonoscopy S/P hemorrhoidectomy Family History Mother No known health problems Father Stroke Denies family history of Ovarian cancer Prostate cancer Breast cancer Lung cancer Colorectal cancer Social History Smoking Status: Never smoker Tobacco Type: Smokeless Tobacco (Dip or Chew) Age Started Using Tobacco: 13; Second Hand Exposure: Yes (hx- smoked); Do You Dip or Chew Tobacco: Yes (1 can/day; advised); Hx Alcohol Use: Yes Alcohol type: beer Alcohol Intake Frequency: 4 or More x per/Week Alcohol Intake Frequency Comment: a beer a day Hx Substance Use: No Preferred Language: Stateless Communication Ability: Effective Visual Impairment: Limited Hearing Ability: Normal Market 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 Required: No Beliefs That Will Affect Care: None marital status: / marital status details: lost in Sep 2020 Current Living Situation: Alone current occupational status: retired How many Children do You have: 1 Feels Safe at Home: Yes Childhood Exposure to Second-Hand Smoke: No Diet: regular Diet Comment: regular caffeine: Yes (tea) during the past year weight has: remained stable Dental Care, Regularly: Yes Physical Activity Frequency: Daily Seatbelt Use: always Sunscreen Use: No Assistive Devices: Walker Review of Systems Review of Systems: All systems reviewed & are unremarkable except as noted in HPI & below Physical Exam Constitutional: WD/WN, vitals as above Neck: trachea midline, no thyromegaly Respiratory: normal respiratory effort, lungs clear to auscultation Cardiovascular: RRR, no murmur, no edema Chest (Breasts): Chest: normal inspection of chest Musculoskeletal: Extremities: + extremities abnormal to inspection (left knee with dressing,wound vac with bloody drainage in place), no cyanosis and no clubbing Skin: no rashes, warm and dry Neurologic: moves all extremities and awake; no focal motor deficits Psychiatric: A+Ox3, euthymic affect Results & Data Results & Data Vital Signs (Past 12 Hours) Vital Signs Temp Pulse Pulse Resp BP Pulse Ox O2 Del Method 12/15/23 07:17 36.5 C 67 18 152/80 H 99 Room Air 12/15/23 03:17 36.8 C 67 16 156/72 H 97 Room Air 12/14/23 23:14 36.5 C 67 16 150/74 H 97 Room Air Laboratory Results CBC, BMP reviewed PG Care Time/CCT Total # of Minutes Spent Total Time Spent with Patient: Total time spent is greater than 50% in coordination of care (as documented) at patient's floor/unit and/or counseling patient: Coding Level of Care Code 32576 IN/OBS CONSULT LVL 3,45M Diagnoses S/P total knee arthroplasty Z96.659 Chronic kidney disease, stage 3 (moderate) N18.30 Hypocalcemia E83.51 Anemia D64.9 Acid reflux K21.9 Benign essential hypertension I10 Depression with anxiety F41.8 Hyperlipidemia E78.5 Restless legs G25.81
[2023-12-15] MEDS: CALCIUM GLUCONATE 1,000 MG/60 ML BAG IV STA (10:05)
[2023-12-15] MEDS: LACTATED RINGER'S 1,000 ML IV SCH (10:05)
[2023-12-15 12:55] LABS: Calcium 6.9 mg/dl (8.6-10.3); Potassium 3.9 mmol/L (3.5-5.1)
[2023-12-15 13:01] LABS: BUN Creatinine Ratio 19.8 (10-20); Creatinine Clr Calc Pharmacy 31.8 ml/min; Est GFR (African American) 45.1 ml/min; Est GFR (Non-African American) 38.9 ml/min
[2023-12-15] MEDS: TAMSULOSIN HCL 0.4 MG CAP PO ONE (14:07)
[2023-12-15] MEDS: oxyCODONE HCL IR 5 MG TAB (IMMEDIATE RELEASE) PO PRN (17:41)
--- NOTE | 2023-12-16 06:26 | Orthopedic Progress Note ---
Date of Service December 16, 2023 Assessment & Plan (1) Bilateral primary osteoarthritis of knee: Plan: POD 2 s/p left total knee arthroplasty PT/OT protocols. Weightbearing as tolerated. DVT prophylaxis-aspirin p.o. twice daily, SCDs, GENESIS garcia. Pain management as written. Urinary retention-patient's postvoid residual was 500 cc. We will go ahead and insert a Godfrey catheter and I will consult urology service. BMP is pending this morning. Patient may have to go home with his Godfrey which I discussed. We will have urology see him later this morning and hopefully patient will be able to go home this afternoon. DC planning-patient is planning for home health services upon discharge. Discussed case with Dr. Rogers. Urology consult done. Pt will go home with godfrey catheter and follow up with Urology for an appt to remove catheter and do voiding trials in the near future. Creatinine continues to come down. Medically stable for dc per Dr. Rogers. Plan for dc to home today Admission and Anticipated Discharge Date Admission Date: December 14, 2023 Subjective Postop day 2 patient sitting up in his chair awake and alert. States he is having some knee pain this morning. Patient also had developed urinary incontinence. Creatinine had trended up to 1.7 and trended down to 1.6 later in the afternoon after receiving fluids. Labs currently pending now. Patient has been straight cath several times and his most recent bladder scan was 500 cc postvoid. Patient states that he is voiding a little bit better but still not completely emptying as noted. no other complaints this morning. Physical Exam Physical Exam: Lisandro dressing is clean, dry, and intact. Patient does have mild to moderate swelling of the right knee consistent with surgery. Calves are soft and nontender. He has swelling down to his ankle residual from surgery. Toes are mobile. Results & Data Vital Signs (Past 12 Hours) Vital Signs Temp Pulse Resp BP Pulse Ox O2 Del Method 12/15/23 19:13 36.5 C 78 18 152/80 H 93 Room Air
[2023-12-16 07:16] LABS: BUN Creatinine Ratio 19.6 (10-20); Calcium 7.1 mg/dl (8.6-10.3); Creatinine Clr Calc Pharmacy 33.7 ml/min; Est GFR (African American) 48.4 ml/min; Est GFR (Non-African American) 41.7 ml/min; Potassium 3.9 mmol/L (3.5-5.1)
[2023-12-16] MEDS: FERROUS SULFATE 325 MG TAB PO SCH (07:19)
--- NOTE | 2023-12-16 08:35 | Hospitalist Progress Note ---
Date of Service December 16, 2023 Assessment & Plan (1) S/P total knee arthroplasty: Plan: S/p left TKA on 12/13, doing well postoperatively Leukocytosis of 20 likely secondary to intraoperative steroids and stress response Pain control, bowel regimen, management postop as per orthopedic surgery Wound vac in place and will go home with this Home PT/OT ordered Aspirin twice daily and GENESIS hose for prophylaxis for DVT (2) Chronic kidney disease, stage 3 (moderate): Plan: Baseline creatinine 1.3, here with acute kidney injury with creatinine up to 1.76, now improved down to 1.5 after Maria catheter/straight catheterization of the bladder and gave 1 L LR Bladder scan revealed over 1000 mL of urine and he was unable to void He was straight catheterized several times and finally had a Maria catheter placed on the morning of 12/15 Avoid nephrotoxic agents and ensure proper renal dosing of medications Holding home Lasix and home potassium until seen by PCP Recommend repeat BMP in 1 week with PCP and resume Lasix/potassium if renal function continues to improve now that Maria catheter in place (3) Urinary retention: Plan: As noted above. This likely related to anesthesia, surgery, immobility, opioid pain medication. He is moving his bowels in the hospital post surgery Urology consulted, Maria catheter placed Started on Flomax and will continue at home-prescribed to pharmacy Follow-up with urology in the office for trial of void (4) Hypocalcemia: Plan: Ca++ level low at 6.4, most recent Vit D level normal 1 year ago gave IV calcium 1000mg and had improvement- f/u with PCP to repeat vit D levels, etc as outpt (5) Anemia: Plan: Mild, hemoglobin 10.7 down from baseline of 11.3 postoperatively Previous history of B12 deficiency but most recent levels are normal and he is not on supplementation as per home medication list Is on iron pills-continue Follow CBC as outpt (6) Acid reflux: Plan: No acute issues, continue PPI (7) Benign essential hypertension: Plan: Blood pressures mildly elevated Home Lasix is on hold and will continue to hold as noted Follow blood pressures (8) Depression with anxiety: Plan: No acute issues, continue home Cymbalta (9) Hyperlipidemia: Plan: Not currently on medication (10) Restless legs: Plan: Not on medication for such, continue iron replacement Plan DVT prophylaxis-SCDs, GENESIS hose, aspirin twice daily Disposition-ok to discharge to home from a medical standpoint. Hospitalist service will sign off at this time discussed care with Hailey Tompkins Admission and Anticipated Discharge Date Admission Date: December 14, 2023 Subjective Patient had to be straight cathed several more times overnight. A Maria catheter was placed this morning. He denies much pain in the leg. Denies chest pains or shortness of breath, no nausea or lightheadedness. Physical Exam Constitutional: WD/WN, vitals as above Neck: trachea midline, no thyromegaly Respiratory: normal respiratory effort, lungs clear to auscultation Cardiovascular: Rate/Rhythm: regular rate and regular rhythm Extremities: + edema (Left leg trace edema) Chest (Breasts): Chest: normal inspection of chest Musculoskeletal: Extremities: + extremities abnormal to inspection (left knee with dressing,wound vac with bloody drainage in place), no cyanosis and no clubbing Skin: no rashes, warm and dry Neurologic: moves all extremities and awake; no focal motor deficits Psychiatric: A+Ox3, euthymic affect Results & Data Results & Data Vital Signs (Past 12 Hours) Vital Signs Temp Pulse Resp BP Pulse Ox O2 Del Method 12/16/23 07:21 36.8 C 82 14 158/76 H 95 Room Air Laboratory Results MP reviewed PG Care Time/CCT Total # of Minutes Spent Total Time Spent with Patient: Total time spent is greater than 50% in coordination of care (as documented) at patient's floor/unit and/or counseling patient: Coding Level of Care Code 22815 SUB INP/OBS CARE 2/35MIN Diagnoses S/P total knee arthroplasty Z96.659 Chronic kidney disease, stage 3 (moderate) N18.30 Urinary retention R33.9 Hypocalcemia E83.51 Anemia D64.9 Acid reflux K21.9 Benign essential hypertension I10 Depression with anxiety F41.8 Hyperlipidemia E78.5 Restless legs G25.81
--- NOTE | 2023-12-16 09:05 | Urology Progress Note ---
Date of Service December 16, 2023 Assessment & Plan (1) Urinary retention: Plan 83-year-old male admitted after elective left TKA who developed urinary retention postoperatively Maria is patent and draining appropriately Recommend maintain Maria catheter for 7 to 10 days Recommend continue with tamsulosin Continue postoperative and medical care per orthopedics We will arrange outpatient follow-up with urology for voiding trial will sign off, contact our service with any additional questions or concerns Admission and Anticipated Discharge Date Admission Date: December 14, 2023 Subjective This is an 83-year-old male who presented to the hospital for elective left TKA on 12/14/[address] Myers who subsequently developed urinary retention postoperatively. Urology is consulted for urinary retention. Chart reviewed and patient developed urinary retention after surgery. Patient developed difficulty voiding and his bladder scan was elevated. He was straight catheterized for 1100 mL. Continued to have elevated PVRs and required another straight catheterization. Maria catheter was placed and he was started on tamsulosin. Today's labscreatinine 1.53, WBC 20.36, hemoglobin 10.7 Patient seen and examined at bedside. He is resting in bed. He is tolerating Maria catheter and is patent and draining clear yellow urine. He denies prior history of urinary retention. Denies bothersome LUTS at baseline. Review of Systems Review of Systems: All systems reviewed & are unremarkable except as noted in HPI & below Physical Exam Constitutional: well developed and well nourished; no acute distress Respiratory: normal respiratory effort; no respiratory distress and no labored breathing Gastrointestinal (Abdomen): Inspection/Auscultation: abdomen normal to inspection Musculoskeletal: Head/Neck/Chest: normocephalic Neurologic: moves all extremities and awake Psychiatric: Orientation: alert and oriented x 3 Genitourinary: Maria catheter is patent and draining clear yellow urine Results & Data Vital Signs (Past 12 Hours) Vital Signs Temp Pulse Resp BP Pulse Ox O2 Del Method 12/16/23 07:21 36.8 C 82 14 158/76 H 95 Room Air PG Care Time/CCT Total # of Minutes Spent Total Time Spent with Patient: Total time spent is greater than 50% in coordination of care (as documented) at patient's floor/unit and/or counseling patient: Coding Diagnoses Urinary retention R33.9
--- NOTE | 2023-12-16 09:13 | Urology Consultation ---
Date of Consultation December 16, 2023 Assessment & Plan (1) Urinary retention: 83-year-old male admitted after elective left TKA who developed urinary retention postoperatively Urinary retention likely multifactorial with probable underlying BPH, anesthesia, immobility, pain medication Maria is patent and draining appropriately Recommend maintain Maria catheter for 7 to 10 days Recommend continue with tamsulosin Normalize bowels Continue postoperative and medical management per orthopedics/hospital medicine We will arrange outpatient follow-up with urology for voiding trial will sign off, contact our service with any additional questions or concerns History of Present Illness Attending Physician: Nixon Myers MD History of Present Illness This is an 83-year-old male who presented to the hospital for elective left TKA on 12/14/[address] Myers who subsequently developed urinary retention postoperatively. Urology is consulted for urinary retention. Patient developed urinary retention after surgery. Patient developed difficulty voiding and his bladder scan was elevated. He was straight catheterized for 1100 mL. Continued to have elevated PVRs and required another straight catheterization. Maria catheter was placed and he was started on tamsulosin. Today's labscreatinine 1.53, WBC 20.36, hemoglobin 10.7 Patient seen and examined at bedside. He is resting in bed. He is tolerating Maria catheter and is patent and draining clear yellow urine. He denies prior history of urinary retention. Denies bothersome LUTS at baseline. Allergies Allergy/AdvReac Type Severity Reaction Status Date / Time No Known Drug Allergies Allergy Verified 12/14/23 09:52 Home Medications Medication Instructions Recorded Confirmed Type aspirin 81 mg tablet,delayed 81 mg PO QAM 05/30/20 12/14/23 History release (Adult Aspirin Regimen) compress.stocking,knee,reg,med #2 ea 06/21/22 12/06/23 Rx calcium phosphate 250 mg-vitamin 1 tab PO QAM 09/21/22 12/14/23 History D3 10 mcg (400 unit) chewable tablet (Caltrate Gummy Bites) ferrous sulfate 325 mg (65 mg 325 mg PO Q2D 01/25/23 12/14/23 History iron) tablet (FeroSul) duloxetine 30 mg capsule,delayed 30 mg PO QAM 11/16/23 12/14/23 History release potassium chloride 10 mEq 10 meq PO QAM 11/16/23 12/14/23 History tablet,extended release omeprazole 20 mg capsule,delayed 20 mg PO DAILY PRN acid reflux #90 11/30/23 12/14/23 Rx release caps furosemide 20 mg tablet (Lasix) See Rx Instructions PO QAM #60 tabs 12/06/23 12/14/23 Rx acetaminophen 500 mg tablet 1,000 mg (2 x 500 mg) PO Q8 14 12/15/23 Rx (Tylenol Extra Strength) days #84 tabs aspirin 81 mg tablet,delayed 81 mg PO BID 30 days #60 tabs 12/15/23 Rx release oxycodone 5 mg tablet 5 mg PO Q4H PRN pain #30 tabs 12/15/23 Rx polyethylene glycol 3350 17 gram 17 g PO DAILY PRN constipation #5 12/15/23 Rx oral powder packet (Miralax) ea tamsulosin 0.4 mg capsule 0.4 mg PO HS #30 caps 12/16/23 Rx Patient History Medical History Osteoarthritis Chronic kidney disease, stage 3 (moderate) Acid reflux occasional - improved with Omeprazole Anemia likely multifactorial in setting of chronic disease and iron/b12 deficiency per PCP records Benign essential hypertension Cognitive impairment "no major issues" per dtr Depression with anxiety Eczema Hyperlipidemia hx-no current meds Restless legs Surgical History S/P total knee arthroplasty Hx of colonoscopy S/P hemorrhoidectomy Family History Mother No known health problems Father Stroke Denies family history of Ovarian cancer Prostate cancer Breast cancer Lung cancer Colorectal cancer Social History Smoking Status: Never smoker Tobacco Type: Smokeless Tobacco (Dip or Chew) Age Started Using Tobacco: 13; Second Hand Exposure: Yes (hx- smoked); Do You Dip or Chew Tobacco: Yes (1 can/day; advised); Hx Alcohol Use: Yes Alcohol type: beer Alcohol Intake Frequency: 4 or More x per/Week Alcohol Intake Frequency Comment: a beer a day Hx Substance Use: No Preferred Language: Indonesian Communication Ability: Effective Visual Impairment: Limited Hearing Ability: Normal Golf Coach Required: No Beliefs That Will Affect Care: None marital status: / marital status details: lost in Sep 2020 Current Living Situation: Alone current occupational status: retired How many Children do You have: 1 Feels Safe at Home: Yes Childhood Exposure to Second-Hand Smoke: No Diet: regular Diet Comment: regular caffeine: Yes (tea) during the past year weight has: remained stable Dental Care, Regularly: Yes Physical Activity Frequency: Daily Seatbelt Use: always Sunscreen Use: No Assistive Devices: Walker Review of Systems Review of Systems: All systems reviewed & are unremarkable except as noted in HPI & below Physical Exam Constitutional: well developed and well nourished; no acute distress Respiratory: normal respiratory effort; no respiratory distress and no labored breathing Gastrointestinal (Abdomen): Inspection/Auscultation: abdomen normal to inspection Musculoskeletal: Head/Neck/Chest: normocephalic Neurologic: moves all extremities and awake Psychiatric: Orientation: alert and oriented x 3 Genitourinary: Maria patent and draining clear yellow urine Results & Data Vital Signs (Past 12 Hours) Vital Signs Temp Pulse Resp BP Pulse Ox O2 Del Method 12/16/23 08:00 Room Air 12/16/23 07:21 36.8 C 82 14 158/76 H 95 Room Air PG Care Time/CCT Total # of Minutes Spent Total Time Spent with Patient: Total time spent is greater than 50% in coordination of care (as documented) at patient's floor/unit and/or counseling patient: Coding Level of Care Code 08471 IN/OBS CONSULT LVL 3,45M Diagnoses Urinary retention R33.9
[2023-12-16] MEDS ORDERED: TAMSULOSIN HCL 0.4 MG CAP PO SCH (21:00)
--- NOTE | 2023-12-19 09:16 | Discharge Summary ---
Date of Service December 19, 2023 Admission HPI Per Admitting Provider 83-year-old male with chronic bilateral knee pain left greater than right with severe end-stage bilateral knee osteoarthritis. Failure of conservative management. Patient denies headaches, sweats, fevers, chills, double vision, blurred vision, cough, sore throat, dysphagia, chest pain, sob, wheezing, n/v/d/c, numbness, tingling, fatigue, urinary symptoms, mood disorders. ROS positive for hypertension, anxiety/depression, anemia, acid reflux. Admission Exam Per Admitting Provider Physical Exam Constitutional: WD/WN, vitals as above Respiratory: normal respiratory effort; no respiratory distress Cardiovascular: Rate/Rhythm: regular rate and regular rhythm Musculoskeletal: Antalgic gait bilateral varus knees bilateral mild effusion bilateral 20 to 90 degrees range of motion bilateral. Normal strength. Chronic edema left leg with lymphedema with venous stasis disease negative ultrasound. Skin: no rashes, warm and dry Neurologic: normal touch/pain/proprioception Psychiatric: A+Ox3, euthymic affect Principal Diagnosis Left knee DJD Discharge Data Allergies Allergy/AdvReac Type Severity Reaction Status Date / Time No Known Drug Allergies Allergy Verified 12/14/23 09:52 Consultations 12/14/23 05:00 Consult Hospitalist Routine 12/16/23 06:27 Consult Urology Routine Procedures Performed Operation Date: 12/14/23 11:00 Actual Procedures p Left Total Knee Arthroplasty(Left) - Nixon Myers MD Ordered Studies 12/14/23 05:00 US - OR guided needle placemen Routine Hospital Course (1) Bilateral primary osteoarthritis of knee: patient was admitted on the above-noted date and had the above-noted surgery performed which he tolerated well. On his first postoperative day, the patient was remaining stable. Vital signs are stable and he was afebrile. He had no overt complaints. He was sitting up in his chair at the bedside. Dressings were clean, dry, and intact. Calves are soft nontender. Neurovascular was intact. Toes are mobile. His lab work came back showing an increase in his creatinine from 1.3-1.7. Dr. Rogers had been consulted for medical management and started the patient on IV fluids. Repeat BMP in the afternoon and it showed a slight decrease in his creatinine however the patient was having urinary retention and requiring straight catheterization. Patient was watched over the day and it was felt that he should remain in the hospital to continue to follow his urinary retention and to follow his creatinine. by his second postoperative day, the patient was remaining stable. He still had not voided and a Maria catheter was inserted. Urology service was consulted and saw the patient that morning. Plans were to continue the Maria catheter on discharge and follow-up in urology office for removal and and check postvoid residuals. Dr. Rogers saw the patient as well and felt that patient was stable medically for discharge. Creatinine had come down to 1.5. Plans were set up from urology and patient was progressing with his physical therapy. He was having some mild left knee pain that morning. His knee was swelling consistent with surgery with some ecchymosis. Jessica dressing was intact. Drain has been removed. Patient had ambulated 200 feet with physical therapy. He was otherwise remaining stable and was felt he could be discharged to home with home health services. Total Time Total Time Spent Total Time Spent (In Minutes): 10 Discharge Plan Discharge Items Patient Disposition: Home - Home Health Services Reason For Visit: Left Knee Osteoarthritis Discharge Diagnosis: Left knee osteoarthritis Hypocalcemia Acute kidney injury Urinary retention Activity: Per Instructions section Weightbearing: Full weightbearing Non-emergency contact: Surgeon Call non-emergency contact if: you have any medication questions, your pain is not controlled, your temperature is above 101.5, your wound has increased redness and your wound has increased drainage Follow-up/Referrals: Jaqueline Maldonado DO [Primary Care Provider] - 12/27/23 8:20 am Nixon Myers MD [Surgeon] - ( follow-up with Dr. Myers in 2 weeks from the day of your surgery for your first postoperative visit.) Diet: Regular Addtl Attending Provider Instructions: ACTIVITY RECOMMENDATIONS: SELF CARE INSTRUCTIONS AFTER TOTAL KNEE REPLACEMENT A. You may need to continue a physical therapy program after discharge from the hospital. There are several options available to you. Your doctor will assist you in selecting the best one for you. 1. An out-patient facility 2 to 3 times a week for therapy or home therapy. 2. Continue working on all exercises taught to you in the hospital. Your goals should be to increase bending of your knee to 90 degrees and beyond and to fully straighten your knee. B. You may progress at your own pace from walking with a walker or crutches to a cane; then to no assistive devices. C. Make walking a part of your daily routine. Be up as much as comfortable with rest periods throughout the day. Rest with leg elevation is very important. Use the ice wrap frequently for the first 3-4 weeks. D. There are no restrictions on activities. You may ride in a car, shop, participate in theatrical agent and all social activities. E. Wear the long elastic stockings (GENESIS hose) 20 hours a day for 2 weeks after surgery. They can be removed several times a day for laundering and for a bath. F. You may shower, no tub baths until cleared by your doctor. SPECIAL CARE INSTRUCTIONS: VERY IMPORTANT TO READ AND REVIEW A. There are a few signs you need to watch for after you are home. Call [facility] [place] if you notice any of the followin. Increased severe knee pain. Some pain is expected especially when you exercise. 2. Increased swelling in your leg or knee; pain or swelling of the calf muscle in either lower leg. 3. Any fluid drainage from the incision. 4. Shortness of breath or chest pain. B. Please call [facility] at if you have any concerns or questions about your operation or recovery. The doctor or his nurse will return your call promptly. C. You must take antibiotics before dental work, bladder, bowel or other surgery. Your doctor will provide you with a permanent care to carry describing this precaution. IMPORTANT: * REMEMBER TO TAKE ASPIRIN, 81 MG, TWICE DAILY FOR 4 WEEKS UNLESS OTHERWISE DIRECTED. THIS IS YOUR BLOOD THINNER. * CALL IF INCREASED PAIN, REDNESS, DRAINAGE OR FEVER GREATER THAT 101. * WEAR GENESIS HOSE 20 HOURS PER DAY FOR 2 WEEKS. * JESSICA dressing - This is a large suction dressing covering your incision. This will help pull any excess drainage from the wound and allow your incision to heal properly. You may shower with this if you can keep the unit outside of the shower. If any bleeding or leakage is noted please call your doctor's office. This will remain on your incision for 7 days and then should be removed. This can be done yourself or by the home nursing staff if applicable. The entire unit is disposable once removed. Once removed, keep incision clean and dry. If redness or drainage is noted, please call your surgeon. . FOLLOW UP VISIT: If appointment is not already scheduled: Please call [facility] [place] to make a follow-up appointment for 2 weeks after your surgery at . Addtl [employer] Supervisor Provider Instructions: HOLD your lasix until seen by your PCP in follow up. If you develop increased swelling in legs, call your doctor to see if ok to resume lasix dosing sooner. Please have your PCP check your kidney function with blood work in 1 week to make sure it has returned to normal. I expect that it will now that your urine is able to flow out through the catheter. You have low calcium levels. You were given calcium through the IV in the hospital and should follow up with your PCP regarding this issue. You were having issues with retaining urine and had to be catheterized several times. Please continue on the Flomax to shrink your prostate and follow up with Urology. Pending Studies at Discharge: No Stand-Alone Forms: My [facility] [place], Smoking Cessation Medications and DC Order Prescriptions: New aspirin 81 mg Tablet,Delayed Release (Dr/Ec) 81 mg PO BID 30 Days Qty: 60 0RF acetaminophen [Tylenol Extra Strength] 500 mg Tablet 1,000 mg PO Q8 14 Days Qty: 84 0RF polyethylene glycol 3350 [Miralax] 17 gram powder in packet 17 g PO DAILY PRN (Reason: constipation) Qty: 5 0RF oxycodone 5 mg tablet 5 mg PO Q4H MDD 6 PRN (Reason: pain) Qty: 30 0RF tamsulosin 0.4 mg Capsule 0.4 mg PO HS Qty: 30 0RF Continued omeprazole 20 mg capsule,delayed release(DR/EC) 20 mg PO DAILY PRN (Reason: acid reflux) Qty: 90 1RF (DME) compress.stocking,knee,reg,med Misc See Rx Instructions .ROUTE .MEDSUPPLY Qty: 2 0RF Rx Instructions: Medium compression 20-30mmHG; Dx: I87.2 calcium phosphate-vitamin D3 [Caltrate Gummy Bites] 250 mg-10 mcg (400 unit) tablet,chewable 1 tab PO QAM ferrous sulfate [FeroSul] 325 mg (65 mg iron) tablet 325 mg PO Q2D duloxetine 30 mg capsule,delayed release(DR/EC) 30 mg PO QAM Held furosemide [Lasix] 20 mg tablet See Rx Instructions PO QAM Qty: 60 4RF Hold Instructions: Resume on 12/26/23. Rx Instructions: 1-2 tablets daily potassium chloride 10 mEq tablet extended release 10 meq PO QAM Hold Instructions: Resume on 12/26/23. Do not take until you resume taking your lasix again. Discontinued aspirin [Adult Aspirin Regimen] 81 mg tablet,delayed release (DR/EC) 81 mg PO QAM Admission Data Admit Date/Time: 12/14/23 13:48 Attending Provider: Nixon Myers Admit Provider: Nixon Myers Primary Care Provider: Jaqueline Maldonado Other Providers: Calvin Bustillos; Dennys Novoa Other Interventions: Discharge Summary Assessment (RN) Last Done: 12/16/23 09:43
== END 2023-12-16 13:50 | disposition home health service (06) ==
LOC: 3E 09:20 → ASU 09:20
DX: D64.9 Anemia, unspecified; G25.81 Restless legs syndrome; M17.11 Unilateral primary osteoarthritis, right knee; E78.5 Hyperlipidemia, unspecified; Z79.82 Long term (current) use of aspirin; Z79.899 Other long term (current) drug therapy; E83.51 Hypocalcemia; K21.9 Gastro-esophageal reflux disease without esophagitis; I12.9 Hypertensive chronic kidney disease with stage 1 through stage 4 chronic kidney disease, or unspecified chronic kidney disease; N18.30 Chronic kidney disease, stage 3 unspecified; Z96.652 Presence of left artificial knee joint

== ENCOUNTER 2024-01-06 08:17 | Observation (INO) ==
--- NOTE | 2024-01-06 09:00 | Emergency Department Note ---
ED Provider Note History of Present Illness Chief Complaint: Referred by Doctor Stated Complaint: abn lab work Time Seen by Provider: 01/06/24 08:36 83-year-old male who was referred to the emergency department for a critical low calcium level of 6.3. The patient was admitted to our hospital earlier this month for a left total knee arthroplasty. The daughter reports that the patient did require IV calcium while in the hospital. The patient has been feeling weak for the past week, and she requested that the PCP recheck labs sooner than scheduled lab draws this coming Tuesday. Home health did draw labs showing a low calcium level. His PCP recommended that he come to the emergency department for further management. When asking the patient how he feels, he reports feeling fine, but the daughter indicates differently. The patient currently denies any chest pain, shortness of breath or difficulty urinating. The patient did have luz marina removed from his knee yesterday, and denies any issues with the knee. He has not noticed any swelling of the legs or arms. The patient currently denies any pain. Home Medications Medication Instructions Recorded Confirmed Type compress.stocking,knee,reg,med #2 ea 06/21/22 12/06/23 Rx calcium phosphate 250 mg-vitamin 1 tab PO QAM 09/21/22 01/06/24 History D3 10 mcg (400 unit) chewable tablet (Caltrate Gummy Bites) ferrous sulfate 325 mg (65 mg 325 mg PO Q2D 01/25/23 01/06/24 History iron) tablet (FeroSul) duloxetine 30 mg capsule,delayed 30 mg PO QAM 11/16/23 01/06/24 History release omeprazole 20 mg capsule,delayed 20 mg PO DAILY PRN acid reflux #90 11/30/23 01/06/24 Rx release caps aspirin 81 mg tablet,delayed 81 mg PO BID 30 days #60 tabs 12/15/23 01/06/24 Rx release oxycodone 5 mg tablet 5 mg PO Q4H PRN pain #30 tabs 12/15/23 01/06/24 Rx polyethylene glycol 3350 17 gram 17 g PO DAILY PRN constipation #5 12/15/23 01/06/24 Rx oral powder packet (Miralax) ea potassium chloride 10 mEq 10 meq PO QAM #90 tabs 12/29/23 01/06/24 Rx tablet,extended release furosemide 20 mg tablet (Lasix) 20 - 40 mg PO QAM 01/06/24 01/06/24 History Allergies Allergy/AdvReac Type Severity Reaction Status Date / Time No Known Drug Allergies Allergy Verified 01/06/24 09:47 Past Med/Surg History Problem List (Updated 01/06/24 @ 13:26 by Francisco Hunter) Hypomagnesemia (Acute) Hypocalcemia (Acute) Anemia, chronic disease Chronic kidney disease (Acute) Hypokalemia (Acute) Hypomagnesemia 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 S/P total knee arthroplasty (Acute) Bilateral primary osteoarthritis of knee Anemia Medical History Urinary retention Hypocalcemia B12 deficiency Chronic kidney disease, stage 3 (moderate) Osteoarthritis Acid reflux occasional - improved with Omeprazole Anemia likely multifactorial in setting of chronic disease and iron/b12 deficiency per PCP records Benign essential hypertension Cognitive impairment "no major issues" per dtr Depression with anxiety Eczema Hyperlipidemia hx-no current meds Restless legs Surgical History Hx of right knee surgery 12/15/2023 Hx of colonoscopy S/P hemorrhoidectomy Family History Mother No known health problems Father Stroke Denies family history of Ovarian cancer Prostate cancer Breast cancer Lung cancer Colorectal cancer Social History Smoking Status: Never smoker Tobacco Type: Smokeless Tobacco (Dip or Chew) Age Started Using Tobacco: 13; Second Hand Exposure: Yes (hx- smoked); Do You Dip or Chew Tobacco: Yes (1 can/day; advised); Hx Alcohol Use: Yes Alcohol type: beer Alcohol Intake Frequency: 4 or More x per/Week Alcohol Intake Frequency Comment: a beer a day Hx Substance Use: No Preferred Language: Indonesian Communication Ability: Effective Visual Impairment: Limited Hearing Ability: Normal 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: No Beliefs That Will Affect Care: None marital status: / marital status details: lost in Sep 2020 Current Living Situation: Alone current occupational status: retired How many Children do You have: 1 Feels Safe at Home: Yes Childhood Exposure to Second-Hand Smoke: No Diet: regular Diet Comment: regular caffeine: Yes (tea) during the past year weight has: remained stable Dental Care, Regularly: Yes Physical Activity Frequency: Daily Seatbelt Use: always Sunscreen Use: No Assistive Devices: Walker Physical Exam Vital Signs Vital Signs - 24 hr 01/06/24 08:19 01/06/24 08:48 01/06/24 08:50 Temperature 36.4 C L Temperature Source Temporal Artery Scan Pulse Rate 77 72 84 Pulse Rate [Apical] Pulse Rate from SpO2 Sensor Pulse Rhythm Regular Pulse Rhythm [Apical] Pulse Strength [Apical] Respiratory Rate 20 24 20 Respiratory Effort / Characteristics Respiratory Depth Respiratory Pattern Blood Pressure 130/66 Blood Pressure [Right Arm] Blood Pressure Mean 87 Blood Pressure Mean [Right Arm] Blood Pressure Position [Right Arm] Pulse Oximetry 97 97 95 Oxygen Delivery Method Room Air Room Air Sepsis Recent Fever Within 48 Hours No Sepsis New/Unexplained Change in Mental Status No Sepsis Action Taken by Nursing No Action Required 01/06/24 09:00 01/06/24 09:00 01/06/24 09:05 Temperature Temperature Source Pulse Rate 71 73 Pulse Rate [Apical] Pulse Rate from SpO2 Sensor 71 Pulse Rhythm Pulse Rhythm [Apical] Pulse Strength [Apical] Respiratory Rate 22 Respiratory Effort / Characteristics Respiratory Depth Respiratory Pattern Blood Pressure 145/75 H Blood Pressure [Right Arm] Blood Pressure Mean 114 Blood Pressure Mean [Right Arm] Blood Pressure Position [Right Arm] Pulse Oximetry 97 Oxygen Delivery Method Sepsis Recent Fever Within 48 Hours Sepsis New/Unexplained Change in Mental Status Sepsis Action Taken by Nursing 01/06/24 10:18 01/06/24 10:28 01/06/24 10:30 Temperature Temperature Source Pulse Rate 73 Pulse Rate [Apical] 82 Pulse Rate from SpO2 Sensor Pulse Rhythm Pulse Rhythm [Apical] Regular Pulse Strength [Apical] Normal Respiratory Rate 20 22 Respiratory Effort / Characteristics Non-Labored Spontaneous Respiratory Depth Normal Respiratory Pattern Regular Blood Pressure 136/70 Blood Pressure [Right Arm] 147/75 H Blood Pressure Mean 95 Blood Pressure Mean [Right Arm] 99 Blood Pressure Position [Right Arm] Sitting Pulse Oximetry Oxygen Delivery Method Sepsis Recent Fever Within 48 Hours Sepsis New/Unexplained Change in Mental Status Sepsis Action Taken by Nursing 01/06/24 10:30 01/06/24 12:00 01/06/24 13:16 Temperature Temperature Source Pulse Rate 72 69 Pulse Rate [Apical] 78 Pulse Rate from SpO2 Sensor Pulse Rhythm Pulse Rhythm [Apical] Regular Pulse Strength [Apical] Normal Respiratory Rate 19 20 Respiratory Effort / Characteristics Non-Labored Spontaneous Respiratory Depth Normal Respiratory Pattern Regular Blood Pressure Blood Pressure [Right Arm] 139/69 Blood Pressure Mean Blood Pressure Mean [Right Arm] 92 Blood Pressure Position [Right Arm] Sitting Pulse Oximetry Oxygen Delivery Method Sepsis Recent Fever Within 48 Hours Sepsis New/Unexplained Change in Mental Status Sepsis Action Taken by Nursing 01/06/24 15:49 Temperature Temperature Source Pulse Rate Pulse Rate [Apical] 70 Pulse Rate from SpO2 Sensor Pulse Rhythm Pulse Rhythm [Apical] Regular Pulse Strength [Apical] Normal Respiratory Rate 24 Respiratory Effort / Characteristics Non-Labored Respiratory Depth Normal Respiratory Pattern Regular Blood Pressure Blood Pressure [Right Arm] 137/60 Blood Pressure Mean Blood Pressure Mean [Right Arm] 85 Blood Pressure Position [Right Arm] Lying Pulse Oximetry 100 Oxygen Delivery Method Room Air Sepsis Recent Fever Within 48 Hours Sepsis New/Unexplained Change in Mental Status Sepsis Action Taken by Nursing CONSTITUTIONAL: Healthy and well nourished. Alert and oriented X 3. GCS 15. Patient does not appear in any acute distress. Patient appears pale. HEENT: Normocephalic, atraumatic. Pupils equal, round and reactive. No scleral icterus or conjunctival injection. Mucous membranes are moist. RESPIRATORY: Clear to auscultation bilaterally with no wheezing, crackles, rhonchi or stridor. CARDIOVASCULAR: Regular rate and rhythm with no murmurs, rubs or gallops. GASTROINTESTINAL: Bowel sounds present in all quadrants. Abdomen soft and nontender to palpation. MUSCULOSKELETAL: No edema of the lower extremity. Examination of the left knee shows good wound healing without peripheral erythema. Steri-Strips are in place. INTEGUMENTARY: No rash or other significant dermatologic conditions noted. HEMATOLOGIC: No ecchymosis or petechiae. PSYCHIATRIC: Positive affect. NEUROLOGIC: No focal neurologic deficits noted. Course Course Patient history and physical exam were performed. Nurses notes were reviewed. Vital signs were reviewed and were normal. I did review outside medical records, showing that the patient's lowest calcium while in the hospital on 12/15/2023 was 6.4. It is noted in documentation that the patient was administered calcium 1000 mg IV infusion. The patient did steadily increase his calcium levels at 6.9 on 12/14, 7.1 on 12/15, and 8.2 on 12/20. I do not see any lab results in our system from yesterday's draws, reportedly being collected by the patient's Home Health agency. IV access was established, and labs were drawn. An ECG was performed and was grossly normal. Portable chest x-ray was also normal. Further review of labs shows a calcium of 6.1, and magnesium of 0.6. Potassium is also mildly low at 3.4. Creatinine is 1.5, and within baseline for the patient. Further review of labs shows a mild leukocytosis with a hemoglobin of 9.8. Platelet count is mildly elevated. Patient also has a mild neutrophilic shift without bandemia. Coagulation studies are normal. TSH was normal. The patient was unable to provide a urine sample while in the emergency department. Findings were discussed with Dr. Beltre, ED attending physician. The patient was administered IV calcium gluconate and magnesium oxide. The case was then further discussed with the [facility] (Dr. Landaverde). We have agreed with admission. Please see their dictation for further treatment and final disposition. Administered Medications Discontinued Medications Magnesium Sulfate/Dextrose (Magnesium Sulfate / D5w) 1 gm in 100 mls @ 100 mls/hr IV Q1H NOEMÍ Stop: 01/06/24 11:59 Last Infusion: 01/06/24 13:22 Dose: Infused Documented By: Admin: 01/06/24 12:01 Dose: 100 mls/hr Documented By: Infusion: 01/06/24 12:01 Dose: Infused Documented By: Admin: 01/06/24 11:20 Dose: 100 mls/hr Documented By: COURTNEY Calcium Gluconate () 1,000 mg in 60 mls @ 240 mls/hr IV NOW STA Stop: 01/06/24 10:17 Last Infusion: 01/06/24 13:06 Dose: Infused Documented By: Admin: 01/06/24 11:21 Dose: 240 mls/hr Documented By: COURTNEY Magnesium Sulfate/Dextrose (Magnesium Sulfate / D5w) 1 gm in 100 mls @ 50 mls/hr IV ONE ONE Stop: 01/06/24 13:59 Last Infusion: 01/06/24 15:47 Dose: Infused Documented By: [facility] Admin: 01/06/24 13:21 Dose: 50 mls/hr Documented By: CARMELA Medical Decision Making Medical Records Attestation: I reviewed the patient's medical records. Home Medications was personally reviewed by me Laboratory Data Attestation: I reviewed the patient's lab results. 01/06/24 08:40 01/06/24 08:40 Lab Results 01/06/24 01/06/24 Range/Units 08:40 11:34 WBC 11.17 H (4.8-10.8) K/ul RBC 3.36 L (4.70-6.10) M/uL Hgb 9.8 L (14.0-18.0) g/dl Hct 29.8 L (42.0-52.0) % MCV 88.7 (80.0-100.0) fL MCH 29.2 (25.0-34.0) pg MCHC 32.9 (32.0-36.0) g/dL RDW Std Deviation 41.5 (36.4-46.3) fL RDW Coeff of Preet 12.7 (11.5-14.5) % Plt Count 414 H (130-400) K/uL MPV 9.4 (9.4-12.4) fL Immature Gran % (Auto) 0.7 % Neut % (Auto) 78.3 % Lymph % (Auto) 11.7 % Coles % (Auto) 8.7 % Eos % (Auto) 0.2 % Baso % (Auto) 0.4 % Neut # (Auto) 8.74 H (1.40-6.50) K/uL Lymph # (Auto) 1.31 (1.20-3.40) K/uL Coles # (Auto) 0.97 H (0.11-0.59) K/uL Eos # (Auto) 0.02 (0.00-0.50) K/uL Baso # (Auto) 0.05 (0.00-0.20) K/uL Immature Gran # (Auto) 0.08 (0.01-0.20) K/uL PT 11.7 (9.0-12.0) Seconds INR 1.1 (0.9-1.1) Sodium 139 (136-145) mmol/L Potassium 3.4 L (3.5-5.1) mmol/L Chloride 103 (98-107) mmol/L Carbon Dioxide 26 (21-32) mmol/L Anion Gap 10 (3-11) BUN 28 H (6-23) mg/dl Creatinine 1.50 H (0.6-1.4) mg/dl Est Cr Clr Drug Dosing 23.5 ml/min Est GFR ( Amer) 49.5 ml/min Est GFR (Non-Af Amer) 42.7 ml/min BUN/Creatinine Ratio 18.7 (10-20) Glucose 105 H (70-99(Fasting)) mg/dl Calcium 6.1 L (8.6-10.3) mg/dl Ionized Calcium 0.84 L (1.12-1.32) mmol/L Phosphorus 4.0 (2.5-4.9) mg/dl Magnesium 0.6 L* (1.7-2.4) mg/dl Total Bilirubin 0.4 (0.2-1.0) mg/dl AST 18 (13-39) U/L ALT 10 (7-52) U/L Alkaline Phosphatase 138 H (34-104) U/L Troponin I High Sens 18.1 (0-20) pg/ml Total Protein 6.2 (6.0-8.3) gm/dl Albumin 3.1 L (3.4-5.0) gm/dl Globulin 3.1 (2.5-4.0) gm/dl Albumin/Globulin Ratio 1.0 (0.9-2) TSH 1.462 (0.300-4.500) uIu/ml PTH Intact 74.4 (12.0-88.0) pg/ml Imaging Data Attestation: I personally reviewed and interpreted this imaging study as follows: My Impression: My interpretation of a portable chest x-ray does not show evidence for pneumonia, pneumothorax or cardiac prominence. Radiologist report was also reviewed with concurrence. Radiologist's Impression: Chest X-Ray 01/06/24 08:50 XR chest 1V portable CLINICAL HISTORY: weakness TECHNIQUE: Single frontal radiograph of the chest was obtained. Comparison: Comparison is made to chest radiograph 11/23/2023 FINDINGS: No lines and tubes are seen. Calcified aortic knob is seen. The lungs are clear. No evidence of pleural effusion or pneumothorax. IMPRESSION: No acute chest disease. ACT 112: Negative or not required by law. Electronically signed by: Alexander Maldonado M.D. 01/06/2024 9:59 AM ECG Data Indication: + weakness Rate (beats per minute): 80 Rhythm: + normal sinus ECG Intervals/blocks: + Short TX ECG Mills: + Normal ECG ST segments: + Normal ST segments Comparison ECG Date: from (11/23/2023) Change: no significant change MDM Narrative See ED Course section for further details of today's visit. The patient presents with outside blood work showing a hypocalcemia. The patient did have a right knee replacement earlier this month, and had hypocalcemia while in the emergency department. He was administered IV calcium 1000 mg, and was sent home. The daughter was concerned because he has been weaker than usual over the past week, and did request labs to be performed. The patient's outpatient calcium was 6.3, and today's labs shows calcium of 6.1, as well as magnesium of 0.6. The patient was administered IV calcium gluconate and magnesium oxide while in the emergency department. The case was further discussed with Dr. Beltre, ED attending physician, who agrees with hospitalist evaluation the [facility] Hospitalist service has also agreed to admission. Please see their dictation for further treatment and final disposition. Further workup today does not show evidence for any cardiac dysrhythmias, infarct or ischemia. Chest x-ray also is normal. The patient's left knee also appears to be healing well without evidence for postoperative infection. Impression Hypocalcemia, Hypomagnesemia, Hypokalemia, Chronic kidney disease, S/P total knee arthroplasty Discharge Plan Visit Data Chief Complaint: Referred by Doctor Stated Complaint: abn lab work ED Provider: Rk Beltre ED Midlevel Provider: Francisco Hunter Discharge Problem: Hypocalcemia, Hypomagnesemia, Hypokalemia, Chronic kidney disease, S/P total knee arthroplasty Forms Stand Alone Forms: My [facility] [employer] Prescriptions Prescriptions: No Action omeprazole 20 mg capsule,delayed release(DR/EC) 20 mg PO DAILY PRN (Reason: acid reflux) Qty: 90 1RF potassium chloride 10 mEq tablet extended release 10 meq PO QAM Qty: 90 3RF Hold Instructions: Resume on 12/26/23. Do not take until you resume taking your lasix again. (DME) compress.stocking,knee,reg,med Misc See Rx Instructions .ROUTE .MEDSUPPLY Qty: 2 0RF Rx Instructions: Medium compression 20-30mmHG; Dx: I87.2 calcium phosphate-vitamin D3 [Caltrate Gummy Bites] 250 mg-10 mcg (400 unit) tablet,chewable 1 tab PO QAM ferrous sulfate [FeroSul] 325 mg (65 mg iron) tablet 325 mg PO Q2D furosemide [Lasix] 20 mg tablet 20 - 40 mg PO QAM Rx Instructions: 1-2 tablets every morning; normally 1 tablet duloxetine 30 mg capsule,delayed release(DR/EC) 30 mg PO QAM aspirin 81 mg Tablet,Delayed Release (Dr/Ec) 81 mg PO BID 30 Days Qty: 60 0RF polyethylene glycol 3350 [Miralax] 17 gram powder in packet 17 g PO DAILY PRN (Reason: constipation) Qty: 5 0RF oxycodone 5 mg tablet 5 mg PO Q4H MDD 6 PRN (Reason: pain) Qty: 30 0RF Referrals Referrals: Jaqueline Maldonado DO [Primary Care Provider] - Discharge Problem: Chronic kidney disease Qualifiers: Chronic kidney disease stage: unspecified stage Qualified Code(s): N18.9 - Chronic kidney disease, unspecified S/P total knee arthroplasty Qualifiers: Laterality: left Qualified Code(s): Z96.652 - Presence of left artificial knee joint
[2024-01-06 09:17] LABS: Basophils # (auto) 0.05 K/uL (0.00-0.20); Basophils % (auto) 0.4 %; Eosinophils # (auto) 0.02 K/uL (0.00-0.50); Eosinophils % (auto) 0.2 %; Hematocrit (blood only) 29.8 % (42.0-52.0); Hemoglobin 9.8 g/dl (14.0-18.0); Immature Granulocytes # (auto) 0.08 K/uL (0.01-0.20); Immature Granulocytes % (auto) 0.7 %; Lymphocytes # (auto) 1.31 K/uL (1.20-3.40); Lymphocytes % (auto) 11.7 %; Mean Corpuscular Hemoglobin 29.2 pg (25.0-34.0); Mean Corpuscular Hgb Conc 32.9 g/dL (32.0-36.0); Mean Corpuscular Volume 88.7 fL (80.0-100.0); Mean Platelet Volume 9.4 fL (9.4-12.4); Monocytes # (auto) 0.97 K/uL (0.11-0.59); Monocytes % (auto) 8.7 %; Neutrophils # (auto) 8.74 K/uL (1.40-6.50); Neutrophils % (auto) 78.3 %; Platelet Count 414 K/uL (130-400); RDW Coefficient of Variation 12.7 % (11.5-14.5); RDW Standard Deviation 41.5 fL (36.4-46.3); Red Blood Count 3.36 M/uL (4.70-6.10); White Blood Count 11.17 K/ul (4.8-10.8)
[2024-01-06 09:39] LABS: BUN Creatinine Ratio 18.7 (10-20); Calcium 6.1 mg/dl (8.6-10.3); Creatinine Clr Calc Pharmacy 23.5 ml/min; Est GFR (African American) 49.5 ml/min; Est GFR (Non-African American) 42.7 ml/min; Potassium 3.4 mmol/L (3.5-5.1)
[2024-01-06 09:41] LABS: INR 1.1 (0.9-1.1); Prothrombin Time 11.7 Seconds (9.0-12.0)
[2024-01-06 09:45] LABS: Troponin I High Sensitivity 18.1 pg/ml (0-20)
[2024-01-06 09:54] LABS: Thyroid Stimulating Hormone 1.462 uIu/ml (0.300-4.500)
--- NOTE | 2024-01-06 10:00 | XRay Report ---
XR chest 1V portable CLINICAL HISTORY: weakness TECHNIQUE: Single frontal radiograph of the chest was obtained. Comparison: Comparison is made to chest radiograph 11/23/2023 FINDINGS: No lines and tubes are seen. Calcified aortic knob is seen. The lungs are clear. No evidence of pleur al effusion or pneumothorax. IMPRESSION: No acute chest disease. ACT 112: Negative or not required by law. Electronically signed by: Alexander Maldonado M.D. 01/06/2024 9:59 AM
[2024-01-06 10:01] LABS: Albumin Level 3.1 gm/dl (3.4-5.0); Bilirubin,Total 0.4 mg/dl (0.2-1.0); Globulin 3.1 gm/dl (2.5-4.0); Magnesium 0.6 mg/dl (1.7-2.4); Total Protein 6.2 gm/dl (6.0-8.3)
[2024-01-06] MEDS ORDERED: MELATONIN 3 MG TAB PO PRN (10:34)
[2024-01-06] MEDS ORDERED: ACETAMINOPHEN 325 MG TAB PO PRN (10:34)
[2024-01-06] MEDS ORDERED: POLYETHYLENE (MIRALAX) 17 GM PACK PO PRN (10:34)
[2024-01-06] MEDS ORDERED: ONDANSETRON INJ 2 MG/ML 2 ML VIAL IV PRN (10:34)
--- NOTE | 2024-01-06 10:46 | History & Physical Report ---
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 presents with CA 6.1 IV calcium prescribed obtain vit D level, PTH nephrology consult start Calcitriol (2) Hypomagnesemia: Plan: unclear etiology, supplement currently taking PPI, can cause hypomagnesemia stop omeprazole, start Pepcid on Lasix, can contribute to hypomagnesemia hold Lasix , no signs of fluid overload IV Magnesium, monitor levels tele (3) Hypokalemia: Plan: K 3.1 supplement hold Lasix (4) Chronic kidney disease: Plan: stage 3 baseline Cr 1.7-1.5 monitor BMP (5) Anemia, chronic disease: Plan: Hgb 9.8 obtain iron study, B12 monitor CBC on iron, B12 History of Present Illness Chief Complaint: hypocalcemia Primary Care Provider: Jaqueline Maldonado DO 83-year-old male with a history of CKD stage III, B12 and iron deficiency anemia, HTN, depression/anxiety, hyperlipidemia, bilateral OA of knees, GERD, lumbar radiculopathy, and chronic venous insufficiency who was recently admitted to the hospital after having left total knee arthroplasty on 12/14/2023, who was referred to the emergency department for a critical low calcium level of 6.3. The patient was admitted to our hospital earlier this month for a left total knee arthroplasty. The daughter reports that the patient did require IV calcium while in the hospital. The patient has been feeling weak for the past week, and she requested that the PCP recheck labs sooner than scheduled lab draws this coming Tuesday. Home health did draw labs showing a low calcium level. His PCP recommended that he come to the emergency department for further management. The patient currently denies any chest pain, shortness of breath or difficulty u rinating. The patient did have luz marina removed from his knee yesterday, and denies any issues with the knee. Patient magnesium level is 0.6, he denies diarrhea, he started taking PPI regularly, no history of cancers or chemotherapy, no alcohol abuse , magnesium level was not checked before, he supposed take Calcium supplements, but he does not. Does not follow with nephrology. Allergies Allergy/AdvReac Type Severity Reaction Status Date / Time No Known Drug Allergies Allergy Verified 01/06/24 09:47 Home Medications Medication Instructions Recorded Confirmed Type compress.stocking,knee,reg,med #2 ea 06/21/22 12/06/23 Rx calcium phosphate 250 mg-vitamin 1 tab PO QAM 09/21/22 01/06/24 History D3 10 mcg (400 unit) chewable tablet (Caltrate Gummy Bites) ferrous sulfate 325 mg (65 mg 325 mg PO Q2D 01/25/23 01/06/24 History iron) tablet (FeroSul) duloxetine 30 mg capsule,delayed 30 mg PO QAM 11/16/23 01/06/24 History release omeprazole 20 mg capsule,delayed 20 mg PO DAILY PRN acid reflux #90 11/30/23 01/06/24 Rx release caps aspirin 81 mg tablet,delayed 81 mg PO BID 30 days #60 tabs 12/15/23 01/06/24 Rx release oxycodone 5 mg tablet 5 mg PO Q4H PRN pain #30 tabs 12/15/23 01/06/24 Rx polyethylene glycol 3350 17 gram 17 g PO DAILY PRN constipation #5 12/15/23 01/06/24 Rx oral powder packet (Miralax) ea potassium chloride 10 mEq 10 meq PO QAM #90 tabs 12/29/23 01/06/24 Rx tablet,extended release furosemide 20 mg tablet (Lasix) 20 - 40 mg PO QAM 01/06/24 01/06/24 History Past Med/Surg History Problem List (Updated 01/06/24 @ 11:08 by Vandana Landaverde MD) Anemia, chronic disease Chronic kidney disease Hypokalemia Hypomagnesemia 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 S/P total knee arthroplasty Bilateral primary osteoarthritis of knee Anemia Medical History Urinary retention Hypocalcemia B12 deficiency Chronic kidney disease, stage 3 (moderate) Osteoarthritis Acid reflux occasional - improved with Omeprazole Anemia likely multifactorial in setting of chronic disease and iron/b12 deficiency per PCP records Benign essential hypertension Cognitive impairment "no major issues" per dtr Depression with anxiety Eczema Hyperlipidemia hx-no current meds Restless legs Surgical History Hx of right knee surgery 12/15/2023 Hx of colonoscopy S/P hemorrhoidectomy Family History Mother No known health problems Father Stroke Denies family history of Ovarian cancer Prostate cancer Breast cancer Lung cancer Colorectal cancer Social History Smoking Status: Never smoker Tobacco Type: Smokeless Tobacco (Dip or Chew) Age Started Using Tobacco: 13; Second Hand Exposure: Yes (hx- smoked); Do You Dip or Chew Tobacco: Yes (1 can/day; advised); Hx Alcohol Use: Yes Alcohol type: beer Alcohol Intake Frequency: 4 or More x per/Week Alcohol Intake Frequency Comment: a beer a day Hx Substance Use: No Preferred Language: Romanian Communication Ability: Effective Visual Impairment: Limited Hearing Ability: Normal Contract Technical Writer Required: No Beliefs That Will Affect Care: None marital status: / marital status details: lost in Sep 2020 Current Living Situation: Alone current occupational status: retired How many Children do You have: 1 Feels Safe at Home: Yes Childhood Exposure to Second-Hand Smoke: No Diet: regular Diet Comment: regular caffeine: Yes (tea) during the past year weight has: remained stable Dental Care, Regularly: Yes Physical Activity Frequency: Daily Seatbelt Use: always Sunscreen Use: No Assistive Devices: Walker Review of Systems Review of Systems: All systems reviewed & are unremarkable except as noted in HPI & below Physical Exam Physical Exam: head atraumatic, normocephalic neck supple, no JVD chest CTA b/l heart S1S2 regular abdomen soft, nt, nd, bs present extremities no edema, no cyanosis neuro AAO times 3, generalized weakness Results & Data Results & Data Vital Signs (Past 12 Hours) Vital Signs Temp Pulse Pulse Resp BP BP Pulse Ox 01/06/24 10:18 82 20 147/75 H 01/06/24 09:05 73 01/06/24 09:00 145/75 H 01/06/24 09:00 71 22 97 01/06/24 08:50 84 20 95 01/06/24 08:48 72 24 97 01/06/24 08:19 36.4 C L 77 20 130/66 97 O2 Del Method 01/06/24 10:18 01/06/24 09:05 01/06/24 09:00 01/06/24 09:00 01/06/24 08:50 Room Air 01/06/24 08:48 01/06/24 08:19 Room Air Laboratory Results Abnormal lab results 01/06/24 Range/Units 08:40 WBC 11.17 H (4.8-10.8) K/ul RBC 3.36 L (4.70-6.10) M/uL Hgb 9.8 L (14.0-18.0) g/dl Hct 29.8 L (42.0-52.0) % Plt Count 414 H (130-400) K/uL Neut # (Auto) 8.74 H (1.40-6.50) K/uL [place] # (Auto) 0.97 H (0.11-0.59) K/uL Potassium 3.4 L (3.5-5.1) mmol/L BUN 28 H (6-23) mg/dl Creatinine 1.50 H (0.6-1.4) mg/dl Glucose 105 H (70-99(Fasting)) mg/dl Calcium 6.1 L (8.6-10.3) mg/dl Magnesium 0.6 L* (1.7-2.4) mg/dl Alkaline Phosphatase 138 H (34-104) U/L Albumin 3.1 L (3.4-5.0) gm/dl Diagnostic Findings Chest X-Ray 01/06/24 08:50 XR chest 1V portable CLINICAL HISTORY: weakness TECHNIQUE: Single frontal radiograph of the chest was obtained. Comparison: Comparison is made to chest radiograph 11/23/2023 FINDINGS: No lines and tubes are seen. Calcified aortic knob is seen. The lungs are clear. No evidence of pleural effusion or pneumothorax. IMPRESSION: No acute chest disease. ACT 112: Negative or not required by law. Electronically signed by: Alexander Maldonado M.D. 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
[2024-01-06] MEDS: MAGNESIUM SULFATE / D5W 1 GM/100 ML BAG IV SCH (11:20)
[2024-01-06] MEDS: CALCIUM GLUCONATE 1,000 MG/60 ML BAG IV STA (11:21)
--- NOTE | 2024-01-06 12:29 | Electrocardiogram Report ---
Test Reason : Blood Pressure : / mmHG Vent. Rate : 080 BPM Atrial Rate : 097 BPM P-R Int : 096 ms QRS Dur : 088 ms QT Int : 410 ms P-R-T Axes : 000 064 075 degrees QTc Int : 472 ms Unusual P axis, possible ectopic atrial rhythm with Premature atrial complexes Abnormal ECG When compared with ECG of 23-NOV-2023 09:50, No significant change Confirmed by Davion Rushing ([id number]) on 01/06/2024 12:29:34 PM Referred By: REFERRED SELF Confirmed By:Davion Rushing
[2024-01-06] MEDS: MAGNESIUM SULFATE / D5W 1 GM/100 ML BAG IV ONE (13:21)
[2024-01-06] MEDS ORDERED: oxyCODONE HCL IR 5 MG TAB (IMMEDIATE RELEASE) PO PRN (18:43)
[2024-01-06] MEDS ORDERED: [UNRECOGNIZED DRUG - OTHER] SCH (18:43)
[2024-01-06] MEDS: ASPIRIN 81 MG ECTAB PO SCH (21:50)
[2024-01-06] MEDS: FERROUS SULFATE 325 MG TAB PO SCH (21:50)
[2024-01-06 23:07] LABS: Appearance Urine Clear (Clear); Bacteria Urine Automated None Seen (None Seen); Bilirubin Urine Negative (Negative); Blood Urine Negative (Negative); Cast Urine Automated 0-2 /lpf (0-2); Color Urine Yellow; Epithelial Cell Urine Auto 0-2 /hpf (0-2); Glucose Urine UA Negative (Negative); Ketones Urine Negative (Negative); Leukocyte Esterase Urine Negative (Negative); Nitrite Urine Negative (Negative); Protein Urine Trace (Negative); Specific Gravity Urine 1.013 (1.000-1.030); Urobilinogen Urine Negative (Negative); WBC Urine Automated 0-5 /hpf (0-5)
[2024-01-07 06:43] LABS: Basophils # (auto) 0.05 K/uL (0.00-0.20); Basophils % (auto) 0.5 %; Eosinophils # (auto) 0.07 K/uL (0.00-0.50); Eosinophils % (auto) 0.7 %; Hematocrit (blood only) 29.2 % (42.0-52.0); Hemoglobin 9.7 g/dl (14.0-18.0); Immature Granulocytes # (auto) 0.06 K/uL (0.01-0.20); Immature Granulocytes % (auto) 0.6 %; Lymphocytes # (auto) 1.38 K/uL (1.20-3.40); Lymphocytes % (auto) 14.1 %; Mean Corpuscular Hemoglobin 29.3 pg (25.0-34.0); Mean Corpuscular Hgb Conc 33.2 g/dL (32.0-36.0); Mean Corpuscular Volume 88.2 fL (80.0-100.0); Mean Platelet Volume 9.3 fL (9.4-12.4); Monocytes # (auto) 0.94 K/uL (0.11-0.59); Monocytes % (auto) 9.6 %; Neutrophils % (auto) 74.5 %; Platelet Count 391 K/uL (130-400); RDW Coefficient of Variation 12.7 % (11.5-14.5); RDW Standard Deviation 40.8 fL (36.4-46.3); Red Blood Count 3.31 M/uL (4.70-6.10)
[2024-01-07] MEDS: POTASSIUM CHLORIDE 10 MEQ TABCR PO SCH (07:48)
[2024-01-07] MEDS: FAMOTIDINE 20 MG TAB PO SCH (07:48)
[2024-01-07] MEDS: DULoxetine HCL 30 MG CAP PO SCH (07:48)
[2024-01-07] MEDS: CALCIUM 600MG + VIT D 400 IU TAB PO SCH (07:48)
[2024-01-07 08:17] LABS: BUN Creatinine Ratio 16.8 (10-20); Calcium 7.2 mg/dl (8.6-10.3); Creatinine Clr Calc Pharmacy 37.7 ml/min; Est GFR (African American) 61.8 ml/min; Est GFR (Non-African American) 53.3 ml/min; Magnesium 1.7 mg/dl (1.7-2.4); Potassium 3.9 mmol/L (3.5-5.1)
--- NOTE | 2024-01-07 11:54 | Nephrology Consultation ---
Date of Consultation January 07, 2024 Assessment & Plan (1) Hypocalcemia: * Hypocalcemia is likely due to PTH resistance related to hypomagnesemia * Hypomagnesemia is likely due to chronic diarrhea related to Metformin * Recommend d/c Metformin. Use alternative therapy for glycemic management * Stop PPI. Agree w/ change to Famotidine * Will start SlowMag + Ca two tablets BID * Continue Caltrate + D therapy * Serum K has been corrected * Await vitamin D, PTH results * Monitor Mg, PRP (2) Acute kidney injury: * Mild ANNY likely related to volume depletion * Will provide 1 L NS * Monitor PRP (3) Chronic kidney disease: * CKD stage G3a - baseline Cr 1.2 w/ EGFR 53 cc/min History of Present Illness Reason for Consultation: Hypocalcemia Attending Physician: Zonia Castanon MD History of Present Illness Mr. Anderson is an 83 year old white male who is seen at the request of the [facility] service for evaluation of hypocalcemia. Information for the HPI is obtained from direct patient interview and review of the EMR. HPI is summarized as follows: Mr. Anderson has AODM managed w/ Metformin therapy. He reports that Metformin has caused him to suffer diarrhea with two liquid stools daily. Outpatient laboratory testing has shown chronic hypomagnesemia complicated by hypocalcemia as well. Mr. Anderson recently underwent L TKA. Outpatient follow up included laboratory testing which revealed a critical Ca 6.4, albumin 3.1, corrected Ca 7.2, Mg 0.6. Hospital admission was advised. Mr. Anderson's medical history is also significant for GERD on chronic PPI therapy, CKD stage G3a (baseline Cr 1.2 w/ EGFR 53 cc/min), BPH w/ urinary retention. Allergies Allergy/AdvReac Type Severity Reaction Status Date / Time No Known Drug Allergies Allergy Verified 01/06/24 09:47 Home Medications Medication Instructions Recorded Confirmed Type compress.stocking,knee,reg,med #2 ea 06/21/22 12/06/23 Rx calcium phosphate 250 mg-vitamin 1 tab PO QAM 09/21/22 01/06/24 History D3 10 mcg (400 unit) chewable tablet (Caltrate Gummy Bites) ferrous sulfate 325 mg (65 mg 325 mg PO Q2D 01/25/23 01/06/24 History iron) tablet (FeroSul) duloxetine 30 mg capsule,delayed 30 mg PO QAM 11/16/23 01/06/24 History release omeprazole 20 mg capsule,delayed 20 mg PO DAILY PRN acid reflux #90 11/30/23 01/06/24 Rx release caps aspirin 81 mg tablet,delayed 81 mg PO BID 30 days #60 tabs 12/15/23 01/06/24 Rx release oxycodone 5 mg tablet 5 mg PO Q4H PRN pain #30 tabs 12/15/23 01/06/24 Rx polyethylene glycol 3350 17 gram 17 g PO DAILY PRN constipation #5 12/15/23 01/06/24 Rx oral powder packet (Miralax) ea potassium chloride 10 mEq 10 meq PO QAM #90 tabs 12/29/23 01/06/24 Rx tablet,extended release furosemide 20 mg tablet (Lasix) 20 - 40 mg PO QAM 01/06/24 01/06/24 History Patient History Medical History Urinary retention Hypocalcemia B12 deficiency Chronic kidney disease, stage 3 (moderate) Osteoarthritis Acid reflux occasional - improved with Omeprazole Anemia likely multifactorial in setting of chronic disease and iron/b12 deficiency per PCP records Benign essential hypertension Cognitive impairment "no major issues" per dtr Depression with anxiety Eczema Hyperlipidemia hx-no current meds Restless legs Surgical History Hx of right knee surgery 12/15/2023 Hx of colonoscopy S/P hemorrhoidectomy Family History Mother No known health problems Father Stroke Denies family history of Ovarian cancer Prostate cancer Breast cancer Lung cancer Colorectal cancer Social History Smoking Status: Never smoker Tobacco Type: Smokeless Tobacco (Dip or Chew) Age Started Using Tobacco: 13; Second Hand Exposure: Yes (hx- smoked); Do You Dip or Chew Tobacco: Yes (1 can/day; advised); Hx Alcohol Use: Yes Alcohol type: beer Alcohol Intake Frequency: 4 or More x per/Week Alcohol Intake Frequency Comment: a beer a day Hx Substance Use: No Preferred Language: Yakut Communication Ability: Effective Visual Impairment: Limited Hearing Ability: Normal Square Cutter Required: No Beliefs That Will Affect Care: None marital status: / marital status details: lost in Sep 2020 Current Living Situation: Alone current occupational status: retired How many Children do You have: 1 Feels Safe at Home: Yes Childhood Exposure to Second-Hand Smoke: No Diet: regular Diet Comment: regular caffeine: Yes (tea) during the past year weight has: remained stable Dental Care, Regularly: Yes Physical Activity Frequency: Daily Seatbelt Use: always Sunscreen Use: No Assistive Devices: Cane, Glasses and Walker Review of Systems Constitutional: no fever Eyes: no problem reported Ear, Nose, Mouth, Throat: no problem reported Respiratory: no cough and no dyspnea Cardiovascular: no chest pain Gastrointestinal: no nausea, no vomiting and no diarrhea/loose stools Genitourinary: + urinary hesitancy Integumentary: no rash Neurologic: no problem reported Physical Exam Constitutional: not in distress Eyes: PERRL, conjunctivae normal, anicteric sclerae ENMT: external ear and nose normal, oropharynx normal Neck: trachea midline, no thyromegaly Respiratory: normal respiratory effort, lungs clear to auscultation Cardiovascular: RRR, no murmur, no edema Gastrointestinal (Abdomen): normal bowel sounds, soft, nontender, no hepatosp lenomegaly Skin: no rashes, warm and dry Neurologic: Speech / Cognition: normal speech and normal cognition Psychiatric: Affect: euthymic affect Genitourinary: Maria catheter in place draining clear, yellow urine Results & Data Vital Signs (Past 12 Hours) Vital Signs Temp Pulse Pulse Resp BP BP Pulse Ox 01/07/24 10:34 36.4 C L 66 18 116/66 97 01/07/24 07:28 68 01/07/24 07:11 36.5 C 65 18 124/63 100 01/07/24 03:02 36.6 C 64 18 135/67 96 O2 Del Method 01/07/24 10:34 Room Air 01/07/24 07:28 01/07/24 07:11 Room Air 01/07/24 03:02 Room Air Laboratory Results Laboratory Results WBC 9.80 K/ul (4.8-10.8) 01/07/24 06:02 RBC 3.31 M/uL (4.70-6.10) L 01/07/24 06:02 Hgb 9.7 g/dl (14.0-18.0) L 01/07/24 06:02 Hct 29.2 % (42.0-52.0) L 01/07/24 06:02 MCV 88.2 fL (80.0-100.0) 01/07/24 06:02 MCH 29.3 pg (25.0-34.0) 01/07/24 06:02 MCHC 33.2 g/dL (32.0-36.0) 01/07/24 06:02 RDW Std Deviation 40.8 fL (36.4-46.3) 01/07/24 06:02 RDW Coeff of Preet 12.7 % (11.5-14.5) 01/07/24 06:02 Plt Count 391 K/uL (130-400) 01/07/24 06:02 MPV 9.3 fL (9.4-12.4) L 01/07/24 06:02 Immature Gran % (Auto) 0.6 % 01/07/24 06:02 Neut % (Auto) 74.5 % 01/07/24 06:02 Lymph % (Auto) 14.1 % 01/07/24 06:02 [place] % (Auto) 9.6 % 01/07/24 06:02 Eos % (Auto) 0.7 % 01/07/24 06:02 Baso % (Auto) 0.5 % 01/07/24 06:02 Neut # (Auto) 7.30 K/uL (1.40-6.50) H 01/07/24 06:02 Lymph # (Auto) 1.38 K/uL (1.20-3.40) 01/07/24 06:02 [place] # (Auto) 0.94 K/uL (0.11-0.59) H 01/07/24 06:02 Eos # (Auto) 0.07 K/uL (0.00-0.50) 01/07/24 06:02 Baso # (Auto) 0.05 K/uL (0.00-0.20) 01/07/24 06:02 Immature Gran # (Auto) 0.06 K/uL (0.01-0.20) 01/07/24 06:02 PT 11.7 Seconds (9.0-12.0) 01/06/24 08:40 INR 1.1 (0.9-1.1) 01/06/24 08:40 Sodium 140 mmol/L (136-145) 01/07/24 06:02 Potassium 3.9 mmol/L (3.5-5.1) 01/07/24 06:02 Chloride 105 mmol/L (98-107) 01/07/24 06:02 Carbon Dioxide 29 mmol/L (21-32) 01/07/24 06:02 Anion Gap 6 (3-11) 01/07/24 06:02 BUN 21 mg/dl (6-23) 01/07/24 06:02 Creatinine 1.25 mg/dl (0.6-1.4) 01/07/24 06:02 Est Cr Clr Drug Dosing 37.7 ml/min 01/07/24 06:02 Est GFR ( Amer) 61.8 ml/min 01/07/24 06:02 Est GFR (Non-Af Amer) 53.3 ml/min 01/07/24 06:02 BUN/Creatinine Ratio 16.8 (10-20) 01/07/24 06:02 Glucose 82 mg/dl (70-99(Fasting)) 01/07/24 06:02 Calcium 7.2 mg/dl (8.6-10.3) L 01/07/24 06:02 Ionized Calcium 0.84 mmol/L (1.12-1.32) L 01/06/24 11:34 Phosphorus 4.0 mg/dl (2.5-4.9) 01/06/24 08:40 Magnesium 1.7 mg/dl (1.7-2.4) 01/07/24 06:02 Iron 27 mcg/dl (35-175) L 01/06/24 08:40 Unsaturated IBC 192 mcg/dl (155-355) 01/06/24 08:40 Total Bilirubin 0.4 mg/dl (0.2-1.0) 01/06/24 08:40 AST 18 U/L (13-39) 01/06/24 08:40 ALT 10 U/L (7-52) 01/06/24 08:40 Alkaline Phosphatase 138 U/L (34-104) H 01/06/24 08:40 Troponin I High Sens 18.1 pg/ml (0-20) 01/06/24 08:40 Total Protein 6.2 gm/dl (6.0-8.3) 01/06/24 08:40 Albumin 3.1 gm/dl (3.4-5.0) L 01/06/24 08:40 Globulin 3.1 gm/dl (2.5-4.0) 01/06/24 08:40 Albumin/Globulin Ratio 1.0 (0.9-2) 01/06/24 08:40 TSH 1.462 uIu/ml (0.300-4.500) 01/06/24 08:40 PTH Intact 74.4 pg/ml (12.0-88.0) 01/06/24 11:34 Urine Color Yellow 01/06/24 Unknown Urine Appearance Clear (Clear) 01/06/24 Unknown Urine pH 6.0 (4.5-7.5) 01/06/24 Unknown Ur Specific [place] 1.013 (1.000-1.030) 01/06/24 Unknown Urine Protein Trace (Negative) H 01/06/24 Unknown Urine Glucose (UA) Negative (Negative) 01/06/24 Unknown Urine Ketones Negative (Negative) 01/06/24 Unknown Urine Blood Negative (Negative) 01/06/24 Unknown Urine Nitrite Negative (Negative) 01/06/24 Unknown Urine Bilirubin Negative (Negative) 01/06/24 Unknown Urine Urobilinogen Negative (Negative) 01/06/24 Unknown Ur Leukocyte Esterase Negative (Negative) 01/06/24 Unknown Urine WBC (Auto) 0-5 /hpf (0-5) 01/06/24 Unknown Urine RBC (Auto) 3-5 /hpf (0-2) H 01/06/24 Unknown U Hyaline Cast (Auto) 0-2 /lpf (0-2) 01/06/24 Unknown U Epithel Cells (Auto) 0-2 /hpf (0-2) 01/06/24 Unknown Urine Bacteria (Auto) None Seen (None Seen) 01/06/24 Unknown Impressions Chest X-Ray 01/06/24 08:50 XR chest 1V portable CLINICAL HISTORY: weakness TECHNIQUE: Single frontal radiograph of the chest was obtained. Comparison: Comparison is made to chest radiograph 11/23/2023 FINDINGS: No lines and tubes are seen. Calcified aortic knob is seen. The lungs are clear. No evidence of pleural effusion or pneumothorax. IMPRESSION: No acute chest disease. ACT 112: Negative or not required by law. Electronically signed by: Alexander Maldonado M.D. 01/06/2024 9:59 AM PG Care Time/CCT Total # of Minutes Spent Total Time Spent with Patient: Total time spent is greater than 50% in coordination of care (as documented) at patient's floor/unit and/or counseling patient: Coding Level of Care Code 16751 IN/OBS CONSULT LVL 5,80M Diagnoses Hypocalcemia E83.51 Acute kidney injury N17.9 Chronic kidney disease N18.9 Chronic kidney disease stage: unspecified stage (3) Chronic kidney disease Chronic kidney disease stage: unspecified stage Qualified Code(s): N18.9 - Chronic kidney disease, unspecified
--- NOTE | 2024-01-07 12:11 | Hospitalist Progress Note ---
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 Hypomagnesemia is related to chronic diarrhea from metformin. The patient is not on metformin. He is not a diabetic. PPI has been switched to Pepcid Patient has been started on Slow-Mag plus calcium 2 tablets twice daily Continue Caltrate plus vitamin D therapy Awaiting vitamin D, PTH results (2) Hypomagnesemia: Plan: Likely secondary to chronic diarrhea from metformin The patient is not on metformin. He is not a diabetic. PPI discontinued. Switched to Pepcid Lasix held as no sign of volume overload at this time (3) Hypokalemia: Plan: K 3.1 supplement hold Lasix (4) Chronic kidney disease: Plan: stage 3 baseline Cr 1.7-1.5 monitor BMP (5) Anemia, chronic disease: Plan: Hgb 9.8 obtain iron study, B12 monitor CBC on iron, B12 Plan Spoke to daughter to update her 01/06 Admission and Anticipated Discharge Date Admission Date: January 06, 2024 Subjective Patient denies any chest pain or shortness of breath. He feels well. Review of Systems Review of Systems: All systems reviewed & are unremarkable except as noted in Subjective Physical Exam Physical Exam: General: Awake, conversant Heart: S1, S2/regular rate and rhythm, no murmur rubs or gallops Lungs: Clear to auscultation bilaterally. Normal effort Abdomen: Soft/nontender/nondistended. No hepatosplenomegaly Extremities: No clubbing/cyanosis. No edema. Left knee healing scar noted from recent surgery Behavior: Appropriate, cooperative Results & Data Results & Data Vital Signs (Past 12 Hours) Vital Signs Temp Pulse Pulse Resp BP BP Pulse Ox 01/07/24 10:34 36.4 C L 66 18 116/66 97 01/07/24 07:28 68 01/07/24 07:11 36.5 C 65 18 124/63 100 01/07/24 03:02 36.6 C 64 18 135/67 96 O2 Del Method 01/07/24 10:34 Room Air 01/07/24 07:28 01/07/24 07:11 Room Air 01/07/24 03:02 Room Air Laboratory Results Abnormal lab results 01/06/24 01/06/24 01/07/24 Range/Units 08:40 Unknown 06:02 RBC 3.31 L (4.70-6.10) M/uL Hgb 9.7 L (14.0-18.0) g/dl Hct 29.2 L (42.0-52.0) % MPV 9.3 L (9.4-12.4) fL Neut # (Auto) 7.30 H (1.40-6.50) K/uL [place] # (Auto) 0.94 H (0.11-0.59) K/uL Calcium 7.2 L (8.6-10.3) mg/dl Iron 27 L (35-175) mcg/dl Urine Protein Trace H (Negative) Urine RBC (Auto) 3-5 H (0-2) /hpf PG Care Time/CCT Total # of Minutes Spent Total Time Spent with Patient: Total time spent is greater than 50% in coordination of care (as documented) at patient's floor/unit and/or counseling patient: Coding Level of Care Code 31764 SUB INP/OBS CARE 2/35MIN Diagnoses 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
[2024-01-07] MEDS: MAGNESIUM CHLORIDE W/CALCIUM 64MG DELAYED REL TAB PO SCH (12:50)
[2024-01-07] MEDS: SODIUM CHLORIDE 0.9% 1,000 ML IV SCH (12:50)
[2024-01-08 06:32] LABS: BUN Creatinine Ratio 16.3 (10-20); Calcium 7.6 mg/dl (8.6-10.3); Creatinine Clr Calc Pharmacy 38.3 ml/min; Est GFR (Non-African American) 54.3 ml/min; Magnesium 1.6 mg/dl (1.7-2.4); Potassium 3.9 mmol/L (3.5-5.1)
[2024-01-08] MEDS: MAGNESIUM SULFATE / D5W 1 GM/100 ML BAG IV SCH (08:45)
--- NOTE | 2024-01-08 08:50 | Nephrology Progress Note ---
Date of Service January 08, 2024 Assessment & Plan (1) Hypocalcemia: Plan: * Hypocalcemia is likely due to PTH resistance related to hypomagnesemia * PPI has been stopped. Agree w/ change to Famotidine * SlowMag + Ca two tablets BID started yesterday * Continue Caltrate + D therapy * Serum Ca 7.6 this am. Will administer 1g IV Ca Gluconate IV today * Primary service has ordered IV MgSO4 replacement * Serum K has been corrected * PTH 74.4 * Await vitamin D results * Monitor Mg, PRP (2) Acute kidney injury: Plan: * Resolved following gentle hydration. Monitor PRP (3) Chronic kidney disease: Plan: * CKD stage G3a - baseline Cr 1.2 w/ EGFR 53 cc/min Admission and Anticipated Discharge Date Admission Date: January 06, 2024 Subjective Correction: Upon entering the room yesterday, I asked for "Benito". Mr. Anderson pointed to his roommate "Bear" who waved me over. This morning I viewed the patient's wrist bands to identify Mr. Benito Anderson. The appropriate patient was then interviewed and examined. Mr. Anderson has no h/o diabetes or metformin use. Mr. Anderson reports a longstanding h/o snuff use and GERD. He had been on PPI therapy. He has diarrhea on occasion but not on a regular basis. This morning he feels well and is anxious to be discharged from the hospital. Review of Systems Constitutional: no fever Eyes: no problem reported Ear, Nose, Mouth, Throat: no problem reported Respiratory: no cough and no dyspnea Cardiovascular: no chest pain Gastrointestinal: no nausea, no vomiting and no diarrhea/loose stools Genitourinary: no urinary hesitancy Integumentary: no rash Neurologic: no problem reported Physical Exam Constitutional: not in distress Eyes: PERRL, conjunctivae normal, anicteric sclerae ENMT: external ear and nose normal, oropharynx normal Neck: trachea midline, no thyromegaly Respiratory: normal respiratory effort, lungs clear to auscultation Cardiovascular: RRR, no murmur, no edema Gastrointestinal (Abdomen): normal bowel sounds, soft, nontender, no hepatosplenomegaly Skin: no rashes, warm and dry Neurologic: Speech / Cognition: normal speech and normal cognition Psychiatric: Affect: euthymic affect Results & Data Vital Signs (Past 12 Hours) Vital Signs Temp Pulse Pulse Resp BP Pulse Ox O2 Del Method 01/08/24 08:08 36.3 C L 76 18 136/75 97 Room Air 01/08/24 03:28 36.6 C 68 18 142/69 H 98 Room Air 01/07/24 23:57 67 01/07/24 23:04 37.6 C H 73 16 128/70 97 Room Air Laboratory Results Laboratory Results - last 24 hr 01/08/24 05:25 Sodium 137 Potassium 3.9 Chloride 106 Carbon Dioxide 26 Anion Gap 5 BUN 20 Creatinine 1.23 Est Cr Clr Drug Dosing 38.3 Est GFR ( Amer) 63.0 Est GFR (Non-Af Amer) 54.3 BUN/Creatinine Ratio 16.3 Glucose 85 Calcium 7.6 L Magnesium 1.6 L PG Care Time/CCT Total # of Minutes Spent Total Time Spent with Patient: Total time spent is greater than 50% in coordination of care (as documented) at patient's floor/unit and/or counseling patient: Coding Level of Care Code 84685 SUB INP/OBS CARE 3/50MIN Diagnoses Hypocalcemia E83.51 Acute kidney injury N17.9 Chronic kidney disease N18.9 Chronic kidney disease stage: unspecified stage (3) Chronic kidney disease Chronic kidney disease stage: unspecified stage Qualified Code(s): N18.9 - Chronic kidney disease, unspecified
[2024-01-08] MEDS: CALCIUM GLUCONATE 1,000 MG/60 ML BAG IV ONE (09:52)
--- NOTE | 2024-01-08 11:43 | Discharge Summary ---
Date of Service January 08, 2024 Admission HPI Per Admitting Provider 83-year-old male with a history of CKD stage III, B12 and iron deficiency anemia, HTN, depression/anxiety, hyperlipidemia, bilateral OA of knees, GERD, lumbar radiculopathy, and chronic venous insufficiency who was recently admitted to the hospital after having left total knee arthroplasty on 12/14/2023, who was referred to the emergency department for a critical low calcium level of 6.3. The patient was admitted to our hospital earlier this month for a left total knee arthroplasty. The daughter reports that the patient did require IV calcium while in the hospital. The patient has been feeling weak for the past week, and she requested that the PCP recheck labs sooner than scheduled lab draws this coming Tuesday. Home health did draw labs showing a low calcium level. His PCP recommended that he come to the emergency department for further management. The patient currently denies any chest pain, shortness of breath or difficulty urinating. The patient did have luz marina removed from his knee yesterday, and denies any issues with the knee. Patient magnesium level is 0.6, he denies diarrhea, he started taking PPI regularly, no history of cancers or chemotherapy, no alcohol abuse , magnesium level was not checked before, he supposed take Calcium supplements, but he does not. Does not follow with nephrology. Admission Exam Per Admitting Provider head atraumatic, normocephalic neck supple, no JVD chest CTA b/l heart S1S2 regular abdomen soft, nt, nd, bs present extremities no edema, no cyanosis neuro AAO times 3, generalized weakness Principal Diagnosis -Hypocalcemia -Hypomagnesemia Discharge Exam General: Awake, conversant Heart: S1, S2/regular rate and rhythm, no murmur rubs or gallops Lungs: Clear to auscultation bilaterally. Normal effort Abdomen: Soft/nontender/nondistended. No hepatosplenomegaly Extremities: No clubbing/cyanosis. No edema. 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 PPI has been switched to Pepcid Patient has been started on Slow-Mag plus calcium 2 tablets twice daily Continue Caltrate plus vitamin D therapy Awaiting vitamin D PTH normal (2) Hypomagnesemia: Likely due to PPI use PPI discontinued. Switched to Pepcid (3) Hypokalemia: Repleted Lasix was held during this hospital stay (4) Chronic kidney disease: stage 3 baseline Cr 1.7-1.5 monitor BMP (5) Anemia, chronic disease: Hgb 9.8 obtain iron study, B12 monitor CBC on iron, B12 Plan Spoke to daughter to update her 01/06 Patient is very anxious to go home. Total Time Total Time Spent Total Time Spent (In Minutes): 35 Discharge Plan Discharge Items Patient Disposition: Home - Home Health Services Reason For Visit: HYPOMAGNESEMIA Discharge Diagnosis: -Hypocalcemia -Hypomagnesemia Activity: Resume your previous activity Non-emergency contact: Primary Care Provider Call non-emergency contact if: you have any medication questions and your symptoms worsen Follow-up/Referrals: Jaqueline Maldonado DO [Primary Care Provider] - 01/26/24 10:20 am Diet: Heart Healthy Addtl Attending Provider Instructions: - Advised to follow-up with PCP in 1 week Pending Studies at Discharge: Yes Studies:: Vitamin D level Stand-Alone Forms: My [facility] Medications and DC Order Prescriptions: New Caltrate 600-D Plus Minerals 600 mg calcium- 800 unit-50 mg Tablet 1 tab PO QAM 30 Days Qty: 30 0RF magnesium chloride [Mag 64] 64 mg Tablet,Delayed Release (Dr/Ec) 128 mg PO BID 30 Days Qty: 120 0RF famotidine 20 mg Tablet 20 mg PO DAILY 30 Days Qty: 30 0RF Continued potassium chloride 10 mEq tablet extended release 10 meq PO QAM Qty: 90 3RF Hold Instructions: Resume on 12/26/23. Do not take until you resume taking your lasix again. (DME) compress.stocking,knee,reg,med Misc See Rx Instructions .ROUTE .MEDSUPPLY Qty: 2 0RF Rx Instructions: Medium compression 20-30mmHG; Dx: I87.2 ferrous sulfate [FeroSul] 325 mg (65 mg iron) tablet 325 mg PO Q2D duloxetine 30 mg capsule,delayed release(DR/EC) 30 mg PO QAM aspirin 81 mg Tablet,Delayed Release (Dr/Ec) 81 mg PO BID 30 Days Qty: 60 0RF polyethylene glycol 3350 [Miralax] 17 gram powder in packet 17 g PO DAILY PRN (Reason: constipation) Qty: 5 0RF oxycodone 5 mg tablet 5 mg PO Q4H MDD 6 PRN (Reason: pain) Qty: 30 0RF Discontinued omeprazole 20 mg capsule,delayed release(DR/EC) 20 mg PO DAILY PRN (Reason: acid reflux) Qty: 90 1RF calcium phosphate-vitamin D3 [Caltrate Gummy Bites] 250 mg-10 mcg (400 unit) tablet,chewable 1 tab PO QAM furosemide [Lasix] 20 mg tablet 20 - 40 mg PO QAM Rx Instructions: 1-2 tablets every morning; normally 1 tablet Discharge Orders: Discharge Order (Routine); Ordered 01/08/24 Ordered By: Zonia Castanon Admission Data Admit Date/Time: 01/06/24 10:34 Attending Provider: Zonia Castanon Admit Provider: Vandana Landaverde Primary Care Provider: Jaqueline Maldonado Other Providers: Malinda Mendoza; Vandana Landaverde Other Interventions: Discharge Summary Assessment (RN) Last Done: 01/08/24 12:14 Coding Level of Care Code 98842 INP/OBS DISCH >30 MIN Diagnoses 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 E83.51; N18.9 Hypomagnesemia E83.42 Hypokalemia E87.6 Chronic kidney disease N18.9 Chronic kidney disease stage: unspecified stage Anemia, chronic disease D63.8
[2024-01-12 17:27] LABS: Vitamin D 1,25 52 pg/mL (18-72); Vitamin D2,1,25 <8 pg/mL; Vitamin D3,1,25 52 pg/mL
== END 2024-01-08 15:20 | disposition home health service (06) | DRG 641 ==
LOC: ED 08:17 → SUATTDRO 10:34 → INTOOBSV 10:34 → EDINP 10:34 → 2N 18:43

== ENCOUNTER 2024-08-22 05:11 | Observation (INO) ==
--- NOTE | 2024-08-02 13:30 | PAT Medication Instructions ---
Medication Instructions Date of Service August 02, 2024 Home Medications Medication Instructions Recorded compress.stocking,knee,reg,med #2 ea 06/21/22 polyethylene glycol 3350 17 gram 17 g PO DAILY PRN constipation #5 12/15/23 oral powder packet (Miralax) ea potassium chloride 10 mEq 10 meq PO QAM #90 tabs 12/29/23 tablet,extended release calcium 600 mg-D3 800 unit-mag11 1 tab PO QAM 3 months #90 tabs 02/03/24 50 hm-zrlt-vgexbu-jackie-s.borat tablet (Caltrate 600-D Plus Minerals) magnesium chloride 64 mg 128 mg (2 x 64 mg) PO BID 3 months 02/03/24 (magnesium chloride) #360 tabs tablet,delayed release (Mag 64) duloxetine 30 mg capsule,delayed 30 mg PO QAM #30 caps 06/12/24 release famotidine 20 mg tablet 20 mg PO BID #180 tabs 06/12/24 ferrous sulfate 325 mg (65 mg iron) tablet (FeroSul) 325 mg PO Q OTHER DAY polyethylene glycol 3350 17 gram oral powder packet (Miralax) 17 g PO DAILY PRN constipation potassium chloride 10 mEq tablet,extended release 10 meq PO QAM calcium 600 mg-D3 800 unit-mag11 50 wn-zfvh-dcfgfm-jackie-s.borat tablet (Caltrate 600-D Plus Minerals) 1 tab PO QAM 3 months magnesium chloride 64 mg (magnesium chloride) tablet,delayed release (Mag 64) 128 mg (2 x 64 mg) PO BID 3 months aspirin 81 mg tablet,delayed release 81 mg PO DAILY duloxetine 30 mg capsule,delayed release 30 mg PO QAM famotidine 20 mg tablet 20 mg PO BID ASK your prescriber and surgeon aspirin 81 mg tablet,delayed release 81 mg PO DAILY DO NOT take the morning of surgery ferrous sulfate 325 mg (65 mg iron) tablet (FeroSul) 325 mg PO Q OTHER DAY polyethylene glycol 3350 17 gram oral powder packet (Miralax) 17 g PO DAILY PRN constipation potassium chloride 10 mEq tablet,extended release 10 meq PO QAM calcium 600 mg-D3 800 unit-mag11 50 rr-arfu-iffmvk-jackie-s.borat tablet (Caltrate 600-D Plus Minerals) 1 tab PO QAM 3 months magnesium chloride 64 mg (magnesium chloride) tablet,delayed release (Mag 64) 128 mg (2 x 64 mg) PO BID 3 months Take morning of surgery With a small sip of water, OTHERWISE NOTHING TO EAT OR DRINK AFTER MIDNIGHT: duloxetine 30 mg capsule,delayed release 30 mg PO QAM famotidine 20 mg tablet 20 mg PO BID Take evening before surgery polyethylene glycol 3350 17 gram oral powder packet (Miralax) 17 g PO DAILY PRN constipation (if needed) famotidine 20 mg tablet 20 mg PO BID Other Notes If you have any questions please call us at [phone] or [phone] or [phone] or [phone]
--- NOTE | 2024-08-13 11:26 | Anesthesiology Consultation ---
Date of Service August 13, 2024 Assessment & Plan (1) Encounter for pre-operative examination: - PCP pre-operative evaluation 07/25/24 [place]: "...Pre-op exam, OA: Risks and benefits discussed with patient of operative procedure. Patient is at acceptable risk for pursuing surgical intervention. Has pre-op testing scheduled for 08/13/23. CKD3, hypocalcemia related to CKD: Hospitalized in December 2023 w/ low Ca, felt to be related to low mg from PPI, PPI stopped; on calcium and mg supplement. 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 as long as he is feeling well, at acceptable risk to proceed." - heme/onc 05/04/24: "...anemia: multifactorial, anemia of chronic disease...continue with oral iron...RTO 3 months..." - Outpatient joint assessment: Patient is currently scheduled for inpatient pathway. If re-evaluated and patient/surgeon requests outpatient pathway, patient is not a candidate for outpatient joint program from anesthesia standpoint. Chart Review Chart Review: Acceptable Risk for Surgery and Patient seen in Pre Admission Testing Teaching & Discussion Pre-Anesthesia Teaching/Discussion Notes: Instructed NPO after midnight before surgery, except medications with 15 cc of water. Medication instructions provided according to the PAT guidelines. History Surgery Operation Date: 08/22/24 14:05 Proposed Procedures p Right Total Knee Arthroplasty - Nixon Myers MD Height/Weight Height: 5 ft 11 in Weight: 66.6 kg Allergies Allergy/AdvReac Type Severity Reaction Status Date / Time No Known Drug Allergies Allergy Verified 07/30/24 08:14 Medications Home Medications Medication Instructions Recorded Confirmed Last Taken compress.stocking,knee,reg,med #2 ea 06/21/22 07/25/24 Unknown ferrous sulfate 325 mg (65 mg 325 mg PO Q OTHER DAY 01/25/23 07/30/24 01/05/24 iron) tablet (FeroSul) polyethylene glycol 3350 17 gram 17 g PO DAILY PRN constipation #5 12/15/23 07/30/24 Unknown oral powder packet (Miralax) ea potassium chloride 10 mEq 10 meq PO QAM #90 tabs 12/29/23 07/30/24 01/06/24 tablet,extended release calcium 600 mg-D3 800 unit-mag11 1 tab PO QAM 3 months #90 tabs 02/03/24 07/30/24 Unknown 50 ph-goom-aofgro-jackie-s.borat tablet (Caltrate 600-D Plus Minerals) magnesium chloride 64 mg 128 mg (2 x 64 mg) PO BID 3 months 02/03/24 07/30/24 Unknown (magnesium chloride) #360 tabs tablet,delayed release (Mag 64) aspirin 81 mg tablet,delayed 81 mg PO DAILY 06/12/24 07/30/24 Unknown release duloxetine 30 mg capsule,delayed 30 mg PO QAM #30 caps 06/12/24 07/30/24 Unknown release famotidine 20 mg tablet 20 mg PO BID #180 tabs 06/12/24 07/30/24 Unknown Past Medical History Medical History (Updated 08/13/24 @ 11:41 by Laura Lovett PA-C) Acid reflux controlled, stable per pt Anemia, chronic disease Cognitive impairment "no major issues" per dtr Depression with anxiety Eczema hx Hx of hyperlipidemia no meds Hypertension controlled, stable per pt Hypocalcemia monitored by [place] PCP Restless legs Stage 3 chronic kidney disease Urinary retention hx - post op with ANNY after left TKA, had home godfrey x 1 week, followed up with dr. rodriguez and was released Patient denies h/o stroke, seizures, heart attack, heart failure, DM, blood clots/DVTs or blood transfusions. Exercise / Class Metabolic Activity II 4-5 Yardwork/Stairs/Walk up hill (denies chest discomfort or shortness of breath with one flight of stairs) Past Family History Family History Mother No known health problems Father Stroke Denies family history of Ovarian cancer Prostate cancer Breast cancer Lung cancer Colorectal cancer Past Surgical History Surgical History Hx of colonoscopy S/P hemorrhoidectomy S/P total knee arthroplasty (12/2023) left knee SAB 1 attempt + PNB. Past Anesthesia History No Hx of Anesthesia Complications and No Family Hx of Anesthesia Complications History of PONV No Hx of PONV and No Hx of Motion Sickness Social History Smoking Status: Never smoker tobacco type: smokeless tobacco Do You Dip or Chew Tobacco: Yes (advised) Hx Alcohol Use: Yes Alcohol type: beer alcohol intake frequency: a few times a week Hx Substance Use: No substance use type: does not use Review of Systems Patient denies chest pain, shortness of breath, dyspnea on exertion, snoring, witnessed apneas, fever, chills, cough, wheezing, or palpitations. Physical Exam Vital Signs Vitals BP 137/84 P 69 TEMP 98.3 SP02 98% on RA RESP 19 Physical Patient resting comfortably in chair in no acute distress, alert and oriented, responding appropriately throughout visit Full cervical extension range of motion without pain TMD 3.5 finger breadths Mallampati Score 2 Dentition: upper plate; denies chipped or loose teeth, caps/crowns, implants or bridges Lungs: normal respiratory effort. Good air movement, clear throughout to auscultation, no adventitious breath sounds Cardiac: regular rate and rhythm, no murmurs noted Carotid arteries: negative bruit bilat Lab Results Anesthesia Preop Results Results Anesthesia Widget: WBC 7.80 K/ul (4.8-10.8) 08/13/24 Hgb 10.6 g/dl (14.0-18.0) L 08/13/24 Hct 32.6 % (42.0-52.0) L 08/13/24 Plt 289 K/uL (130-400) 08/13/24 Na 140 mmol/L (136-145) 08/13/24 K 4.7 mmol/L (3.5-5.1) 08/13/24 Cl 107 mmol/L (98-107) 08/13/24 CO2 27 mmol/L (21-32) 08/13/24 BUN 35 mg/dl (6-23) H 08/13/24 Creat 1.38 mg/dl (0.6-1.4) 08/13/24 Glucose Level 87 mg/dl (70-99(Fasting)) 08/13/24 PT 9.9 Seconds (9.0-12.0) 08/13/24 PTT 25 Seconds (21-31) 08/13/24 INR 0.9 (0.9-1.1) 08/13/24 Urine Color Yellow 08/13/24 Urine Appearance Clear (Clear) 08/13/24 Urine pH 5.5 (4.5-7.5) 08/13/24 Urine Specific [place] 1.017 (1.000-1.030) 08/13/24 Urine Protein Negative (Negative) 08/13/24 Urine Glucose (UA) Negative (Negative) 08/13/24 Urine Ketones Negative (Negative) 08/13/24 Urine Blood Negative (Negative) 08/13/24 Urine Nitrite Negative (Negative) 08/13/24 Urine Bilirubin Negative (Negative) 08/13/24 Urine Urobilinogen Negative (Negative) 08/13/24 Urine Leukocyte Esterase Negative (Negative) 08/13/24 Blood Type O Positive 08/13/24 Antibody Screen NEGATIVE 08/13/24 Testing Electrocardiogram Date: 08/13/24 Poor data quality NSR, rate 65 bpm Chest X-Ray Date: 08/13/24 No acute findings.
--- NOTE | 2024-08-20 16:32 | History & Physical Report ---
Date of Service August 20, 2024 Assessment & Plan (1) Osteoarthritis of right knee: Plan: End-stage right knee osteoarthritis. Status post successful left knee replacement. Plan is to proceed with a right Nirav total knee replacement. Osteoarthritis type: primary Qualified Code(s): M17.11 - Unilateral primary osteoarthritis, right knee History of Present Illness Chief Complaint: Chronic right knee pain Primary Care Provider: Jaqueline Maldonado DO 84-year-old male with severe bilateral knee osteoarthritis who has successful left knee replacement 12/14/2023. Allergies Allergy/AdvReac Type Severity Reaction Status Date / Time No Known Drug Allergies Allergy Verified 07/30/24 08:14 Home Medications Medication Instructions Recorded Confirmed Type compress.stocking,knee,reg,med #2 ea 06/21/22 07/25/24 Rx ferrous sulfate 325 mg (65 mg 325 mg PO Q OTHER DAY 01/25/23 07/30/24 History iron) tablet (FeroSul) polyethylene glycol 3350 17 gram 17 g PO DAILY PRN constipation #5 12/15/23 07/30/24 Rx oral powder packet (Miralax) ea potassium chloride 10 mEq 10 meq PO QAM #90 tabs 12/29/23 07/30/24 Rx tablet,extended release calcium 600 mg-D3 800 unit-mag11 1 tab PO QAM 3 months #90 tabs 02/03/24 07/30/24 Rx 50 iv-tzra-mphxum-jackie-s.borat tablet (Caltrate 600-D Plus Minerals) magnesium chloride 64 mg 128 mg (2 x 64 mg) PO BID 3 months 02/03/24 07/30/24 Rx (magnesium chloride) #360 tabs tablet,delayed release (Mag 64) aspirin 81 mg tablet,delayed 81 mg PO DAILY 06/12/24 07/30/24 History release duloxetine 30 mg capsule,delayed 30 mg PO QAM #30 caps 06/12/24 07/30/24 Rx release famotidine 20 mg tablet 20 mg PO BID #180 tabs 06/12/24 07/30/24 Rx Past Med/Surg History Problem List (Updated 08/20/24 @ 16:46 by Nixon Myers MD) Osteoarthritis of right knee Anemia, chronic disease 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 Bilateral primary osteoarthritis of knee B12 deficiency Chronic kidney disease, stage 3 (moderate) Osteoarthritis Acid reflux occasional - improved with Omeprazole Benign essential hypertension Depression with anxiety Hyperlipidemia hx-no current meds Restless legs Medical History Hypertension controlled, stable per pt Stage 3 chronic kidney disease Anemia, chronic disease Restless legs Depression with anxiety Hx of hyperlipidemia no meds Acid reflux controlled, stable per pt Hypocalcemia monitored by [place] PCP Urinary retention hx - post op with ANNY after left TKA, had home godfrey x 1 week, followed up with dr. rodriguez and was released Cognitive impairment "no major issues" per dtr Eczema hx Surgical History S/P total knee arthroplasty (12/2023) left knee SAB 1 attempt + PNB. Hx of colonoscopy S/P hemorrhoidectomy Family History Mother No known health problems Father Stroke Denies family history of Ovarian cancer Prostate cancer Breast cancer Lung cancer Colorectal cancer Social History Smoking Status: Never smoker Tobacco Type: Smokeless Tobacco (Dip or Chew) Age Started Using Tobacco: 13; Second Hand Exposure: No; Do You Dip or Chew Tobacco: Yes (advised); Hx Alcohol Use: Yes Alcohol type: beer Alcohol Intake Frequency: 4 or More x per/Week Alcohol Intake Frequency Comment: a beer a day Hx Substance Use: No Preferred Language: Iranian Communication Ability: Effective Visual Impairment: Limited Hearing Ability: Normal Manager Of Digital Required: No Beliefs That Will Affect Care: None marital status: / marital status details: lost in Sep 2020 Current Living Situation: Family Current Living Situation Comment: daughter fausto stays daily current occupational status: retired How many Children do You have: 1 Feels Safe at Home: Yes Childhood Exposure to Second-Hand Smoke: No Diet: regular Diet Comment: regular caffeine: Yes (tea) during the past year weight has: remained stable Dental Care, Regularly: Yes Physical Activity Frequency: Daily Seatbelt Use: always Sunscreen Use: No Assistive Devices: Cane, Denture - Upper and Glasses Review of Systems Chronic anemia, chronic venous stasis disease, anxiety, acid reflux. Physical Exam Constitutional: WD/WN, vitals as above Respiratory: normal respiratory effort; no respiratory distress Cardiovascular: Rate/Rhythm: regular rate and regular rhythm Musculoskeletal: Right knee is varus left knee neutral. Surgical scars with some residual mild swelling left knee. Stable well-functioning left knee replacement. Right knee has medial joint line tenderness mild swelling mild patellar crepitation with some increased tilt patellofemoral joint. Painful range of motion with very limited motion passively 25 - 90 degrees only. Patient has 10-125 degrees in his opposite knee. Lower extremity neurovascular exam normal except for some asymmetrical edema left ankle and calf compared to the right and some chronic venous disease bilateral. Skin: no rashes, warm and dry Neurologic: normal touch/pain/proprioception Psychiatric: A+Ox3, euthymic affect Results & Data Diagnostic Findings Right knee x-rays demonstrate severe medial compartmental osteoarthritis with bone loss with a varus knee. Patient has tricompartmental osteoarthritic changes including patellofemoral arthritis with some lateral patellar tilt. There is chondrocalcinosis so could have calcium pyrophosphate disease. Patient has a well aligned triathlon left knee replacement.
[2024-08-22] MEDS: CeleBREX 200 MG CAP PO SCH (05:42)
[2024-08-22] MEDS: ACETAMINOPHEN 500 MG TAB PO SCH ×2 (05:42→14:27)
[2024-08-22] MEDS: FAMOTIDINE 20 MG TAB PO SCH ×2 (05:42→21:38)
[2024-08-22] MEDS: dexAMETHasone**PF** 10 MG/ML VIAL IV SCH (05:42)
[2024-08-22] MEDS: METOCLOPRAMIDE HCL 10 MG TABLET PO SCH (05:42)
[2024-08-22] MEDS: LR 60ML/HR IV SCH (05:44)
[2024-08-22] MEDS: GABAPENTIN 300 MG CAP PO SCH (05:44)
[2024-08-22] MEDS: LR 500ML BOLUS, THEN 15ML/HR IV SCH (05:52)
[2024-08-22] MEDS ORDERED: EPINEPHrine INJ 1 MG/ML AMP ONE (06:24)
[2024-08-22] MEDS ORDERED: ROPIVACAINE 0.5% 5 MG/ML 30 ML VIAL ONE (06:24)
[2024-08-22] MEDS ORDERED: BUPIVACAINE 0.5 % 5 MG/1 ML PF 10ML VIAL ONE (06:24)
[2024-08-22] MEDS ORDERED: MIDAZOLAM HCL 1 MG/ML 2ML VIAL ONE (06:33)
[2024-08-22] MEDS ORDERED: PROPOFOL IV EMULSION 10 MG/ML 20 ML VIAL IV ONE (06:33)
[2024-08-22] MEDS ORDERED: DEXAMETHASONE SOD INJ 4 MG/ML VIAL ONE (06:33)
[2024-08-22] MEDS ORDERED: fentaNYL citrate PF 100 MCG/2 ML VIAL ONE (06:33)
[2024-08-22] MEDS ORDERED: ONDANSETRON INJ 2 MG/ML 2 ML VIAL ONE (06:33)
[2024-08-22] MEDS ORDERED: LIDOCAINE 2% 2 ML VIAL/AMP(20MG/ML) INFIL ONE (06:33)
[2024-08-22] MEDS ORDERED: GLYCOPYRROLATE 0.2 MG/ML VIAL ONE (06:34)
--- NOTE | 2024-08-22 07:06 | History & Physical Bridge Note ---
Date of Service August 22, 2024 History & Physical Bridge Note I have examined the patient, reviewed the History & Physical and in the interval since the performance of the History & Physical I have noted the following changes of clinical significance: no changes noted
[2024-08-22] MEDS: TRANEXAMIC ACID 1,000 MG **IV Pre-op IV SCH (07:07)
[2024-08-22] MEDS: ceFAZolin 2000MG 2,000 MG/15 ML SYR IV SCH ×2 (07:21→15:48)
[2024-08-22] MEDS ORDERED: ATROPINE SULFATE 0.1 MG/ML 10ML SYR IV PRN (08:01)
[2024-08-22] MEDS ORDERED: ePHEDrine sulfate 50 MG/ML AMP IV PRN (08:01)
[2024-08-22] MEDS: ORTHO JOINT ANESTHETIC ONE (08:05)
[2024-08-22] MEDS: ROPIVACAINE 0.5% HCL/PF 246 MG, Ketorolac (*for OR use only*) 30 MG in SODIUM CHLORIDE ... INFIL SCH (08:47)
[2024-08-22] MEDS: TRANEXAMIC ACID 1,000 MG **IV Intra-op IV SCH (09:03)
[2024-08-22] MEDS ORDERED: PHENYLEPHRINE HCL 10 MG/ML VIAL ONE (09:23)
--- NOTE | 2024-08-22 09:39 | Post Operative Brief Note ---
Immediate Post Op Note Date of Surgery August 22, 2024 Pre & Post Diagnosis Operation Date: 08/22/24 07:00 Pre-Op Diagnosis: Osteoarthritis of right knee Post-Op Diagnosis: Osteoarthritis of right knee, chondrocalcinosis and loose bodies I identified the patient and participated in the time-out.: Yes Procedure Operation Date: 08/22/24 07:00 Actual Procedures p Right Total Knee Arthroplasty(Right), partial synovectomy excision calcium deposits and loose bodies, katelynn and Acticoat superficial wound VAC application.- Nixon Myers MD Surgeon Nixon Myers MD Professor Of Nursing Quoc MALONEY Estimated Blood Loss 5 Findings Consistent with Post-Op Diagnosis Specimens Bone cuts Drains Hemovac Drain Complications none Disposition Disposition: Recovery Room Overlapping Procedure I was immediately available: during the entire case.
--- NOTE | 2024-08-22 09:44 | Operative Report ---
Post Operative Report Pre & Post Diagnosis Operation Date: 08/22/24 07:00 Pre-Op Diagnosis: Osteoarthritis of right knee Post-Op Diagnosis: Osteoarthritis of right knee, chondrocalcinosis, loose bodies. I identified the patient and participated in the time-out.: Yes Procedure Operation Date: 08/22/24 07:00 Actual Procedures p Right Total Knee Arthroplasty(Right), partial synovectomy removal calcium deposits, removal loose bodies, lisandro and Acticoat superficial wound VAC application- Nixon Myers MD Surgeon Nixon Myers MD Art Gilder Quoc MALONEY Estimated Blood Loss 5 Findings Consistent with Post-Op Diagnosis Specimens Bone cuts Drains 2 Hemovac Anesthesia Type MAC Spinal Regional Complications none Disposition Disposition: Recovery Room Indications 84-year-old male with very severe osteoarthritis right knee with [id number] medial compartment with bone loss with tricompartmental disease. Patient has a flexion contracture. Patient had previous left knee replacement recently with good outcome compared to preoperative status and is here for staged right knee replacement. Description of Procedure Patient taken to the operating room the size under spinal MAC regional block anesthesia. Patient was placed supine on the operating table. A pneumatic tourniquet was placed about the right upper thigh. The right lower extremity was prepped and draped in sterile fashion. Knee exam demonstrated fixed varus deformity with flexion contracture and no pseudolaxity with 25 to 90 degrees range of motion in a relatively thin leg. The leg was elevated exsanguinated with an Esmarch bandage and pneumatic tourniquet was raised to 300 millimeters of mercury. Skin incised sharply in longitudinal fashion. Subcutaneous flaps elevated. Incision was made through the medial retinaculum extending up in the mid third of the quadriceps tendon and down to the medial tibial tubercle. Intra-articular findings demonstrated tricompartmental osteoarthritis with bone loss medial compartment grade 4 [id number]. There was chondrocalcinosis with multiple calcium deposits in the synovium throughout the joint suggestive of calcium pyrophosphate disease. There were multiple loose bodies which were removed. Some of the inflamed synovium along with calcium deposits was resected with necessary.. The eXelate triathlon total knee arthroplasty system was used. To expose the knee the infrapatellar fat pad was resected. The meniscal remnants and cruciate ligaments were resected. The anterior fat pad over the femur in the area of the location of the anterior flange of the femoral component was resected. The lateral synovial bands were released. The femur was exposed. An intramedullary drill hole was made into the canal. A guide maria was placed. Distal femoral cutting guide was adjusted to resect a 5 degree valgus cut with 10 millimeters distal femur resected. The knee was extended and a subperiosteal peel lateral release was performed around the patella. Patella width was measured and width was reproduced using a freehand cut technique and a 36 symmetrical patella component. The 3 drill holes were made and the excess lateral facet was beveled off to prevent any impingement. Attention was taken back to the femur which was exposed with retractors and the femoral sizing guide was pinned in position. The drill holes were placed in 3 of external rotation to match the epicondylar axis. The femur sized for a size 6 component. The 4-in-1 cutting block was placed and then the anterior posterior and chamfer cuts are made. The tibia was then subluxed. The external tibial cutting guide was adjusted to make a perpendicular cut to the long axis of the tibia below the most deficient bone loss side. Cut was adjusted for slope. A lamina player piano technician was used and the flexion extension gaps were balanced. Medial posterior medial and piecrust MCL releases were required. All posterior osteophytes removed. All meniscal remnants were resected. The tibia exposed and the trial tibial component size 6 was externally rotated in line with the tibial tubercle and pinned in position. The punch for stem was used. The notch cutting device was centered appropriately and the femoral notch cut was made. The femoral trial was inserted. Trial tibial inserts were placed and size 11 gave balanced ligaments through flexion and extension. Patella tracking was assessed. The patella tracked centrally. The trial components were then removed and the orthomix anesthetic cocktail was injected per protocol. The knee was then copiously irrigated with pulsatile lavage saline solution. Final components were then cemented with Refobacin cement. Xperience irrigation placed over metal compoments prior to polyethylene insertion. Final components were [place] triathlon size 6 right posterior stabilized femoral component, 6 primary tibial tray with an 11 mm posterior stabilized tibial polyethylene and a 36 mm symmetrical polyethylene patella. After the cement cured further irrigation performed with Betadine soak and then pulsatile lavage irrigation was then performed with Xperience and 2 Hemovac drains were brought out laterally. The quadriceps tendon and medial retinaculum were closed with #2 FiberWire [id number]-tx-[id number] sutures along the medial retinaculum medial side of the patella and distal quadriceps tendon and an additional cjvdme-sj-kuptf suture at the apex of the quadriceps tendon split proximally and an additional ywdmlc-uw-hkjlv suture at the level of the tibial polyethylene in the patella tendon. a 0 running locking STRATAFIX suture was placed starting at the proximal split in the quadriceps tendon extending down to the inferior pole the patella and then below that level [id number]-vx-[id number] #1 Vicryl sutures were utilized to repair the medial retinaculum to the patella tendon. The knee was taken through full range of motion and the repair was secure. Knee range of motion was 0 through 125 degrees. The subcutaneous tissues were closed with 2-0 Vicryl sutures. Skin was closed with surgical luz marina. Lisandro and Acticoat superficial wound VAC was applied. The patient tolerated the procedure well. Quoc MALONEY was my physician community program assistant who participated as benefits assistant and was involved in all aspects of the procedure including patient positioning prepping and draping,leg positioning ,soft tissue retraction and instrument management and participated in the closing and application of the superficial wound VAC and will participate in postoperative care of the patient. The patient tolerated the procedure well. I attest to the content of the Intraoperative Record and any orders documented therein. Any exceptions are noted below.
--- NOTE | 2024-08-22 10:10 | XRay Report ---
XR knee RT 1 or 2V routine HISTORY: 84 years-old Male Surgical Post Op right knee arthroplasty COMPARISON: None TECHNIQUE: 2 views of the right knee FINDINGS: Total arthroplasty with patellar resurfacing. Anterior midline skin luz marina with expected postoperati ve soft tissue swelling and deep tissue air with surgical drainage catheter in place. IMPRESSION: Satisfactory alignment of the total joint arthroplasty. ACT 112: Negative or not required by law. The above report was generated using voice recognition software. It may contain grammatical, syntax o r spelling errors. Electronically signed by: Louis Butcher M.D. 08/22/2024 10:09 AM
--- NOTE | 2024-08-22 11:10 | Anesthesiology Progress Note ---
Date of Service August 22, 2024 Anesthesia Post Procedure Vital Signs Vital Signs: Temp Pulse Pulse Resp BP Pulse Ox O2 Del Method 08/22/24 11:00 47 L 15 124/58 L 100 Nasal Cannula 08/22/24 10:50 52 L 14 123/59 L 100 Nasal Cannula 08/22/24 10:40 55 L 14 129/64 100 Nasal Cannula 08/22/24 10:30 56 L 18 135/64 100 Nasal Cannula 08/22/24 10:20 61 12 125/60 95 Room Air 08/22/24 10:10 66 15 130/76 99 Oxymask 08/22/24 10:00 63 15 140/68 100 Oxymask 08/22/24 09:50 68 13 126/62 99 Oxymask 08/22/24 09:42 36.7 C 69 16 123/56 L 99 Oxymask 08/22/24 05:31 36.5 C 58 L 20 191/73 H 100 Room Air O2 Flow Rate 08/22/24 11:00 2 08/22/24 10:50 2 08/22/24 10:40 2 08/22/24 10:30 2 08/22/24 10:20 08/22/24 10:10 2 08/22/24 10:00 4 08/22/24 09:50 9 08/22/24 09:42 9 08/22/24 05:31 Pain Intensity Right Knee: Pain Intensity: 4 Transfer of Care Handoff Completed per policy Notes Mental Status: alert / awake / arousable Patient Amnestic to Procedure: Yes Nausea / Vomiting: adequately controlled Pain: adequately controlled Airway Patency, RR, SpO2: stable & adequate BP & HR: stable & adequate Hydration State: stable & adequate Anesthetic Complications: no major complications apparent
[2024-08-22] MEDS ORDERED: METOCLOPRAMIDE HCL INJ 5 MG/ML 2 ML VIAL IV PRN (11:34)
[2024-08-22] MEDS ORDERED: POLYETHYLENE (MIRALAX) 17 GM PACK PO PRN (11:34)
[2024-08-22] MEDS ORDERED: ALUMINUM/MAGNESIUM SUSP 30 ML UDC PO PRN (11:34)
[2024-08-22] MEDS ORDERED: bisacodyL 10 MG SUPP PR PRN (11:34)
[2024-08-22] MEDS ORDERED: diphenhydrAMINE Capsule 25 MG CAP PO PRN (11:34)
[2024-08-22] MEDS ORDERED: MAGNESIUM HYDROXIDE SUSP 30 ML UDC PO PRN (11:34)
[2024-08-22] MEDS ORDERED: TAMSULOSIN HCL 0.4 MG CAP PO PRN (11:34)
[2024-08-22] MEDS ORDERED: ONDANSETRON INJ 2 MG/ML 2 ML VIAL IV PRN (11:34)
[2024-08-22] MEDS ORDERED: NALOXONE HCL 0.4 MG/1 ML VIAL/CARP IV PRN (11:34)
[2024-08-22] MEDS ORDERED: KETOROLAC TROMETHAMINE 15 MG/ML VIAL IV PRN (11:34)
--- NOTE | 2024-08-22 13:14 | Hospitalist Consultation ---
Date of Consultation August 22, 2024 Assessment & Plan (1) Osteoarthritis of right knee: Overall summary: Pleasant 84-year-old male s/p right knee TKA for osteoarthritis without complications and doing well. Has had some postoperative bradycardia which is new, he is asymptomatic with this and has been normotensive. Heart rate immediately raises to high 50s/low 60s when he sits up and moves in bed. Likely with resting a somatic bradycardia, slightly worsened in the postanesthesia. However with appropriate chronotropic response and no hemodynamic instability. Can continue monitoring on MSO, discussed with nursing and provider to be notified if any symptoms of bradycardia or hypotension develop. Otherwise he is doing well, no acute concerns or needs at time of visit. Does have history of CKD and GERD. No GERD symptoms at time of assessment however does occasionally use NSAIDs and is on Toradol. Toradol has been dose decreased, recommend avoiding this while are possible but if patient has breakthrough pain reasonable risks compared to opioids. If any GI symptoms develop then would hold this entirely and start PPI treatment rather than H2. Right knee OA S/p right TKA with Dr. Poe 08/22/2024 Pain control, activity, DVT prophylaxis per primary team 5 cc of blood loss, no complications reported Bradycardia EKG sinus bradycardia, no ischemic changes. No heart block. When sitting up in bed talking heart rate immediately improved to 5060s Suspect mild resting asymptomatic bradycardia when sleeping, possibly slightly worsened postanesthesia but improving and without any signs of hemodynamic instability. Continue regular vital sign monitoring. No acute interventions are warranted at this time. If he develops symptomatic bradycardia then can treat with atropine x 1 and moved to PCU at that time. Anemia Stable on outpatient oral iron. Anemia of chronic disease with underlying CKD Preoperative hemoglobin 10.6, repeat labs in the morning. Minimal operative blood loss reported and no bleeding reported by patient. GERD With history of increasing pain off PPI therapy for which his Pepcid was increased to twice daily 06/2024. Does use Tums/Rolaids as an outpatient. NO symptoms at bedside. Recommend avoiding tums at this time, continue pepcid BID. If developing symptoms --> +PPI daily x4 weeks. Minimize NSAID use. CKD Baseline creatinine around 1.381.55. Cr Cl ~30-40. Creatinine is 1.38 preop Adjust medications as needed, avoid nephrotoxins, repeat BMP 08/23 Recommend minimizing NSAID use both due to history of CKD and GERD. Toradol dosing decreased from 15 every 6 to 7.5mg q6h, and would use tylenol first line. Chronic stable issues: Hyperlipidemia: Intolerant of statins, no acute change in management - Lumbar radiculopathy: Receives outpatient lumbar injections. No acute change in management. Pain adequately controlled at time bedside assessment - Chronic venous insufficiency: With some baseline left greater than right swelling. Appears at baseline at time of visit. Recommend leg elevation, compression stocking use, early ambulation as tolerated. Heart healthy diet - Depression/anxiety: Continue duloxetine DVT prophylaxis: Aspirin twice daily per primary team Diet: Heart healthy CODE STATUS: Full code Disposition: MSO (2) Anemia, chronic disease: (3) Chronic kidney disease, stage 3 (moderate): (4) Depression with anxiety: (5) Hyperlipidemia: History of Present Illness Attending Physician: Nixon Myers MD History of Present Illness Benito is an 84-year-old male with past medical history of CKD 3, depression/anxiety, essential hypertension, left lower extremity radiculopathy and lumbar disc herniation, OA, AOCD on outpatient oral iron, and chronic insufficiency with baseline left leg swelling greater than the right with negative Dopplers on past evaluation who presented for right TKA due to right knee OA. We are consulted for postoperative medication management. Benito seen at the bedside. He reports he feels well, but is tired as he had to get up to be in the hospital around 5 AM this morning. He reports his knee has no pain at time of assessment, has some feeling back in his right foot with no numbness/tingling. He denies chest pain, chest pressure, shortness of breath, difficulty breathing. No fevers or chills. No lightheadedness or dizziness. Reports he has been told he sometimes has a slow heart rate in the past. Feels well and has no symptoms at time of bedside visit. Does sit up in bed and engage with provider, and while on monitoring heart rate does improve during conversation. Endorses chronic back pain which is no worse than its normal. No nausea/vomiting. No dyspnea. Pleasant with no questions at time of visit. Medical History: Reviewed Medications: Reviewed Surgical History: Reviewed Family history: Reviewed Allergies: Reviewed Social History: Reviewed Code Status: Full Allergies Allergy/AdvReac Type Severity Reaction Status Date / Time No Known Drug Allergies Allergy Verified 08/22/24 05:39 Home Medications Medication Instructions Recorded Confirmed Type compress.stocking,knee,reg,med #2 ea 06/21/22 07/25/24 Rx ferrous sulfate 325 mg (65 mg 325 mg PO Q OTHER DAY 01/25/23 08/22/24 History iron) tablet (FeroSul) polyethylene glycol 3350 17 gram 17 g PO DAILY PRN constipation #5 12/15/23 08/22/24 Rx oral powder packet (Miralax) ea potassium chloride 10 mEq 10 meq PO QAM #90 tabs 12/29/23 08/22/24 Rx tablet,extended release calcium 600 mg-D3 800 unit-mag11 1 tab PO QAM 3 months #90 tabs 02/03/24 08/22/24 Rx 50 vw-kcvf-eadlcw-jackie-s.borat tablet (Caltrate 600-D Plus Minerals) magnesium chloride 64 mg 128 mg (2 x 64 mg) PO BID 3 months 02/03/24 08/22/24 Rx (magnesium chloride) #360 tabs tablet,delayed release (Mag 64) aspirin 81 mg tablet,delayed 81 mg PO DAILY 06/12/24 08/22/24 History release duloxetine 30 mg capsule,delayed 30 mg PO QAM #30 caps 06/12/24 08/22/24 Rx release famotidine 20 mg tablet 20 mg PO BID #180 tabs 06/12/24 08/22/24 Rx acetaminophen 500 mg tablet 1,000 mg (2 x 500 mg) PO Q8H #90 08/22/24 Rx (Tylenol Extra Strength) tabs aspirin 81 mg tablet,delayed 81 mg PO BID #60 tabs 08/22/24 Rx release cefadroxil 500 mg capsule 500 mg PO Q12H #28 caps 08/22/24 Rx oxycodone 5 mg tablet 5 mg PO Q4H PRN pain #20 tabs 08/22/24 Rx Patient History Medical History Hypertension controlled, stable per pt Stage 3 chronic kidney disease Anemia, chronic disease Restless legs Depression with anxiety Hx of hyperlipidemia no meds Acid reflux controlled, stable per pt Hypocalcemia monitored by [place] PCP Urinary retention hx - post op with [facility] after left TKA, had home godfrey x 1 week, followed up with dr. rodriguez and was released Cognitive impairment "no major issues" per dtr Eczema hx Surgical History S/P total knee arthroplasty (12/2023) left knee SAB 1 attempt + PNB. Hx of colonoscopy S/P hemorrhoidectomy Family History Mother No known health problems Father Stroke Denies family history of Ovarian cancer Prostate cancer Breast cancer Lung cancer Colorectal cancer Social History Smoking Status: Never smoker Tobacco Type: Smokeless Tobacco (Dip or Chew) Age Started Using Tobacco: 13; Second Hand Exposure: No; Do You Dip or Chew Tobacco: Yes (advised); Tobacco Cessation Education Requested by Patient: No Hx Alcohol Use: Yes Alcohol type: beer Alcohol Intake Frequency: 4 or More x per/Week Alcohol Intake Frequency Comment: a beer a day Hx Substance Use: No Preferred Language: Chinese Communication Ability: Effective Visual Impairment: Limited Hearing Ability: Normal Ballet Master/Mistress Required: No Beliefs That Will Affect Care: None marital status: / marital status details: lost in Sep 2020 Current Living Situation: Family Current Living Situation Comment: daughter fausto stays daily current occupational status: retired How many Children do You have: 1 Other Information That Helps Us Care for You: No Feels Safe at Home: Yes Safety Concerns: Feels Safe At This Time Childhood Exposure to Second-Hand Smoke: No Diet: regular Diet Comment: regular caffeine: Yes (tea) during the past year weight has: remained stable Dental Care, Regularly: Yes Physical Activity Frequency: Daily Seatbelt Use: always Sunscreen Use: No Assistive Devices: Cane, Denture - Upper and Glasses Physical Exam Physical Exam: General: A&Ox3. NAD. Cooperative. HEENT: Atraumatic, normocephalic. Vision and hearing grossly intact. 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 Pulm: CTAB A&P. -wheezes, -rales, -rhonchi. Symmetrical chest rise. No increased work of breathing. No respiratory distress. Cardiac: Cardiac, regular, -mrg. Rate improves with activity. Radial pulses intact and symmetrical. Abdominal: Nontender, nondistended, soft. BS present. Lower extremities: Trace lower extremity edema. Ankle dorsiflexion/plantarflexion is intact bilaterally. Sensation of soft touch is intact in the feet bilaterally, patient reports slightly diminished in the right foot but improving with time. PT pulses intact bilaterally. Cap refill in the hallux is brisk bilaterally. Results & Data Results & Data Vital Signs (Past 12 Hours) Vital Signs Temp Pulse Pulse Resp BP Pulse Ox O2 Del Method 08/22/24 12:26 48 L 14 136/63 97 Room Air 08/22/24 11:59 55 L 14 127/66 97 Room Air 08/22/24 11:34 36.2 C L 57 L 16 134/72 97 Room Air 08/22/24 11:10 36.4 C L 53 L 15 121/61 98 Room Air 08/22/24 11:00 47 L 15 124/58 L 100 Nasal Cannula 08/22/24 10:50 52 L 14 123/59 L 100 Nasal Cannula 08/22/24 10:40 55 L 14 129/64 100 Nasal Cannula 08/22/24 10:30 56 L 18 135/64 100 Nasal Cannula 08/22/24 10:20 61 12 125/60 95 Room Air 08/22/24 10:10 66 15 130/76 99 Oxymask 08/22/24 10:00 63 15 140/68 100 Oxymask 08/22/24 09:50 68 13 126/62 99 Oxymask 08/22/24 09:42 36.7 C 69 16 123/56 L 99 Oxymask 08/22/24 05:31 36.5 C 58 L 20 191/73 H 100 Room Air O2 Flow Rate 08/22/24 12:26 08/22/24 11:59 08/22/24 11:34 08/22/24 11:10 08/22/24 11:00 2 08/22/24 10:50 2 08/22/24 10:40 2 08/22/24 10:30 2 08/22/24 10:20 08/22/24 10:10 2 08/22/24 10:00 4 08/22/24 09:50 9 08/22/24 09:42 9 08/22/24 05:31 PG Care Time/CCT Total # of Minutes Spent Total Time Spent with Patient: Total time spent is greater than 50% in coordination of care (as documented) at patient's floor/unit and/or counseling patient: Coding Level of Care Code 26680 IN/OBS CONSULT LVL 4,60M Diagnoses Primary osteoarthritis of right knee M17.11 Osteoarthritis type: primary Anemia, chronic disease D63.8 Chronic kidney disease, stage 3 (moderate) N18.30 Depression with anxiety F41.8 Hyperlipidemia E78.5 (1) Osteoarthritis of right knee Osteoarthritis type: primary Qualified Code(s): M17.11 - Unilateral primary osteoarthritis, right knee
--- NOTE | 2024-08-22 13:53 | Anesthesiology Progress Note ---
Date of Service August 22, 2024 Anesthesia Post Procedure Vital Signs Vital Signs: Temp Pulse Pulse Resp BP Pulse Ox O2 Del Method 08/22/24 13:32 45 L 16 153/68 H 96 Room Air 08/22/24 12:26 48 L 14 136/63 97 Room Air 08/22/24 11:59 55 L 14 127/66 97 Room Air 08/22/24 11:34 36.2 C L 57 L 16 134/72 97 Room Air 08/22/24 11:10 36.4 C L 53 L 15 121/61 98 Room Air 08/22/24 11:00 47 L 15 124/58 L 100 Nasal Cannula 08/22/24 10:50 52 L 14 123/59 L 100 Nasal Cannula 08/22/24 10:40 55 L 14 129/64 100 Nasal Cannula 08/22/24 10:30 56 L 18 135/64 100 Nasal Cannula 08/22/24 10:20 61 12 125/60 95 Room Air 08/22/24 10:10 66 15 130/76 99 Oxymask 08/22/24 10:00 63 15 140/68 100 Oxymask 08/22/24 09:50 68 13 126/62 99 Oxymask 08/22/24 09:42 36.7 C 69 16 123/56 L 99 Oxymask 08/22/24 05:31 36.5 C 58 L 20 191/73 H 100 Room Air O2 Flow Rate 08/22/24 13:32 08/22/24 12:26 08/22/24 11:59 08/22/24 11:34 08/22/24 11:10 08/22/24 11:00 2 08/22/24 10:50 2 08/22/24 10:40 2 08/22/24 10:30 2 08/22/24 10:20 08/22/24 10:10 2 08/22/24 10:00 4 08/22/24 09:50 9 08/22/24 09:42 9 08/22/24 05:31 Pain Intensity Right Knee: Pain Intensity: 4 Transfer of Care Handoff Completed per policy Notes Mental Status: alert / awake / arousable Patient Amnestic to Procedure: Yes Nausea / Vomiting: adequately controlled Pain: adequately controlled Airway Patency, RR, SpO2: stable & adequate BP & HR: stable & adequate Hydration State: stable & adequate Neuraxial Anesthesia: was administered and sensory block is resolving Anesthetic Complications: no major complications apparent
[2024-08-22] MEDS: TRANEXAMIC ACID / 0.7% NACL 1,000 MG/100 ML BAG IV SCH (15:52)
[2024-08-22] MEDS: SENNA 8.6 MG TAB PO SCH (21:37)
[2024-08-22] MEDS: DOCUSATE SODIUM 100 MG CAP PO SCH (21:37)
[2024-08-22] MEDS: ASPIRIN 81 MG ECTAB PO SCH (21:38)
[2024-08-22] MEDS: MAGNESIUM CHLORIDE W/CALCIUM 64MG DELAYED REL TAB PO SCH (21:38)
--- NOTE | 2024-08-23 07:39 | Electrocardiogram Report ---
Test Reason : Blood Pressure : */* mmHG Vent. Rate : 45 BPM Atrial Rate : 45 BPM P-R Int : 140 ms QRS Dur : 96 ms QT Int : 486 ms P-R-T Axes : 59 22 43 degrees QTcB Int : 420 ms Sinus bradycardia Otherwise normal ECG When compared with ECG of 13-Aug-2024 11:57, No significant change was found Confirmed by Nicolas Falcon ([id number]) on 08/23/2024 7:39:35 AM Referred By: Nixon Myers Confirmed By: Nicolas Falcon
[2024-08-23 07:50] LABS: Hemoglobin 9.1 g/dl (14.0-18.0); Mean Corpuscular Hemoglobin 30.4 pg (25.0-34.0); Mean Corpuscular Hgb Conc 33.7 g/dL (32.0-36.0); Mean Corpuscular Volume 90.3 fL (80.0-100.0); Mean Platelet Volume 9.8 fL (9.4-12.4); Platelet Count 233 K/uL (130-400); RDW Coefficient of Variation 13.2 % (11.5-14.5); RDW Standard Deviation 43.2 fL (36.4-46.3); Red Blood Count 2.99 M/uL (4.70-6.10); White Blood Count 11.12 K/ul (4.8-10.8)
[2024-08-23 08:05] LABS: BUN Creatinine Ratio 22.3 (10-20); Calcium 8.1 mg/dl (8.6-10.3); Creatinine Clr Calc Pharmacy 29.8 ml/min; Potassium 4.5 mmol/L (3.5-5.1)
[2024-08-23] MEDS: MULTIVITAMIN TAB PO SCH (08:21)
[2024-08-23] MEDS: DULoxetine HCL 30 MG CAP PO SCH (08:21)
[2024-08-23] MEDS: CALCIUM 600MG + VIT D 400 IU TAB PO SCH (08:21)
[2024-08-23] MEDS: POTASSIUM CHLORIDE 10 MEQ TABCR PO SCH (08:21)
[2024-08-23] MEDS: dexAMETHasone 10 MG in SYRINGE 0 ML IV SCH (08:22)
--- NOTE | 2024-08-23 08:28 | Orthopedic Progress Note ---
Date of Service August 23, 2024 Assessment & Plan (1) Osteoarthritis of right knee: Plan: End-stage right knee osteoarthritis. Status post successful left knee replacement. Plan is to proceed with a right [place] total knee replacement. Postop day 1 knee replacement. Patient had nonfunctional Hemovac so is likely has more stiffness in his knee than his other knee due to typical internal bleeding post knee replacement. Would maintain the compressive bandage for another day and have home PT remove it. Patient like to go home if home PT will be set up. Patient if okay with medical service to be discharged can be discharged home with home PT. (2) Anemia, chronic disease: Plan: Known anemia patient started with hemoglobin 10 only down to 9 so no major drop. Patient has chronic anemia so I think he will tolerate this satisfactorily. Admission and Anticipated Discharge Date Admission Date: August 22, 2024 Subjective Knee feels stiff like dressing might be tight Review of Systems Review of Systems: Patient feels well no chest pain shortness of breath no fatigue. Physical Exam Musculoskeletal: 0 to 90 degrees range of motion dressing dry and in tact, good circulation in his toes good motor function. Results & Data Vital Signs (Past 12 Hours) Vital Signs Temp Pulse Pulse Pulse Resp BP Pulse Ox 08/23/24 07:13 36.7 C 90 18 124/61 98 08/23/24 02:35 36.2 C L 56 L 18 125/65 96 08/22/24 22:41 36.4 C L 53 L 16 129/64 99 O2 Del Method 08/23/24 07:13 Room Air 08/23/24 02:35 Room Air 08/22/24 22:41 Room Air Laboratory Results Hemoglobin 9 Diagnostic Findings Well aligned right total knee replacement (1) Osteoarthritis of right knee Osteoarthritis type: primary Qualified Code(s): M17.11 - Unilateral primary osteoarthritis, right knee
[2024-08-23] MEDS: TAMSULOSIN HCL 0.4 MG CAP PO SCH (08:42)
[2024-08-23] MEDS: oxyCODONE HCL IR 5 MG TAB (IMMEDIATE RELEASE) PO PRN (11:12)
--- NOTE | 2024-08-23 11:39 | Hospitalist Progress Note ---
Date of Service August 23, 2024 Assessment & Plan (1) Osteoarthritis of right knee: Plan: POD #1 s/p right TKA with Dr. Myers 08/22/2024 From ortho standpoint doing well They have cleared him for home but need to finalize plan for his urinary issues and the mild ANNY - see below DVT proph - asa 81mg BID x 6 weeks ice, pain control prn (2) Anemia, chronic disease: Plan: baseline hemoglobin 9's/10's hemoglobin this am acceptable at 9.1 -- mild drop 2nd to blood loss from surgery cont Ferrous Sulfate supplementation (3) Chronic kidney disease, stage 3 (moderate): Plan: Baseline creatinine around 1.381.55. Baseline CrCl ~30-40. Cr today 1.79 c/w mild ANNY. Possibly obstructive given the urinary retention. Possibly pre-renal in the setting of surgery. Plan to repeat the BMP at 1400 today for stability. (4) Depression with anxiety: Plan: cont home meds (5) Hyperlipidemia: Plan: not on meds for such (6) Acute urinary retention: Plan: s/p straight cath last pm for such has not voided spontaneously since the surgery will give him a little more time to see if he can void if no success will place godfrey and send him home with such will start flomax 0.4mg qam and ask him to take at home daily at least over the next 2-3 weeks side effects discussed Plan will continue to follow Admission and Anticipated Discharge Date Admission Date: August 22, 2024 Subjective patient sitting in chair comfortably required straight cath last night was bladder scanned for 575ml and was cathed for similar amount he had minimal sensation to void at that time since then he still has not voided spontaneously he has no LUTS at home and no nocturia no h/o BPH but he did have urinary retention following his left TKR and he ultimately required godfrey catheter at that time Review of Systems Review of Systems: cv - no chest pain pulm - no dyspnea or VILLAGRAN GI - no abd pain or N/V; not passing flatus yet but tolerating food/beverage Physical Exam Physical Exam: gen - NAD, sitting in chair comfortably neck - no JVD mouth - chewing tobacco present; MMM heart - RRR, s1 s2, no murmur lungs - CTA b/l abd - soft NT ND BS+; no HSM ext - right knee wrapped in AROLDO wrap; ice pack present; mild edema right foot; trace edema left foot; pulses 2+ b/l psych - a/o x 3 Results & Data Results & Data Vital Signs (Past 12 Hours) Vital Signs Temp Pulse Pulse Resp BP Pulse Ox O2 Del Method 08/23/24 07:13 36.7 C 90 18 124/61 98 Room Air 08/23/24 02:35 36.2 C L 56 L 18 125/65 96 Room Air Laboratory Results Laboratory Results - last 24 hr 08/23/24 07:24 WBC 11.12 H RBC 2.99 L Hgb 9.1 L Hct 27.0 L MCV 90.3 MCH 30.4 MCHC 33.7 RDW Std Deviation 43.2 RDW Coeff of Preet 13.2 Plt Count 233 MPV 9.8 Sodium 136 Potassium 4.5 Chloride 106 Carbon Dioxide 25 Anion Gap 5 BUN 40 H Creatinine 1.79 H Est Cr Clr Drug Dosing 29.8 eGFR 37.13 BUN/Creatinine Ratio 22.3 H Glucose 84 Calcium 8.1 L PG Care Time/CCT Total # of Minutes Spent Total Time Spent with Patient: Total time spent is greater than 50% in coordination of care (as documented) at patient's floor/unit and/or counseling patient: Coding Level of Care Code 40061 SUB INP/OBS CARE 3/50MIN Diagnoses Primary osteoarthritis of right knee M17.11 Osteoarthritis type: primary Anemia, chronic disease D63.8 Chronic kidney disease, stage 3 (moderate) N18.30 Depression with anxiety F41.8 Hyperlipidemia E78.5 Acute urinary retention R33.8 (1) Osteoarthritis of right knee Osteoarthritis type: primary Qualified Code(s): M17.11 - Unilateral primary osteoarthritis, right knee
[2024-08-23] MEDS: KETOROLAC TROMETHAMINE 15 MG/ML VIAL IV PRN (14:20)
[2024-08-23 15:09] LABS: BUN Creatinine Ratio 22.3 (10-20); Creatinine Clr Calc Pharmacy 29.8 ml/min; Potassium 4.7 mmol/L (3.5-5.1)
[2024-08-23] MEDS: HYDROmorphone INJ 0.5 MG/0.5 ML SYR IV PRN (16:05)
[2024-08-23] MEDS: SODIUM CHLORIDE 0.9% 1,000 ML IV SCH (16:05)
[2024-08-24 07:07] VITALS: BP 155/60; PULSE 63; RESP 16; TEMP 97.7; O2SAT 99
[2024-08-24 07:23] LABS: Hematocrit (blood only) 29.4 % (42.0-52.0); Hemoglobin 9.8 g/dl (14.0-18.0)
[2024-08-24] MEDS: FERROUS SULFATE 325 MG TAB PO SCH (07:45)
[2024-08-24 07:50] LABS: BUN Creatinine Ratio 21.7 (10-20); Calcium 8.9 mg/dl (8.6-10.3); Creatinine Clr Calc Pharmacy 32.1 ml/min; Potassium 4.2 mmol/L (3.5-5.1)
--- NOTE | 2024-08-24 08:39 | Orthopedic Progress Note ---
Date of Service August 24, 2024 Assessment & Plan (1) Osteoarthritis of right knee: Plan: Status post right knee replacement postop day #2. Patient had preop flexion contracture so was going to need physical therapy and encouragement to have his knee straightened out. I was able to obtain full range of motion intraoperatively so currently this is related to patient's discomfort. Pain meds as necessary. Continue PT efforts. With regard to discharge I will let medical team weigh in on his renal insufficiency however orthopedically he is ready to be discharged. Admission and Anticipated Discharge Date Admission Date: August 22, 2024 Subjective Having some more pain in the knee. Otherwise feeling well. Review of Systems Review of Systems: Unremarkable Physical Exam 2 Musculoskeletal: No drainage from drain removal site. No erythema. Lisandro sealed with no blisters. Moderate swelling. Good distal circulation sensorimotor exam. Patient holding knee flexed because of discomfort. Results & Data Vital Signs (Past 12 Hours) Vital Signs Temp Pulse Resp BP Pulse Ox O2 Del Method 08/24/24 07:06 36.5 C 63 16 155/60 H 99 Room Air Laboratory Results Creatinine improving (1) Osteoarthritis of right knee Osteoarthritis type: primary Qualified Code(s): M17.11 - Unilateral primary osteoarthritis, right knee
[2024-08-24 10:23] LABS: Estimated Average Glucose 108 mg/dl; Hemoglobin A1C 5.4 % (4.5-5.6)
--- NOTE | 2024-08-24 11:57 | Hospitalist Progress Note ---
Date of Service August 24, 2024 Assessment & Plan (1) Osteoarthritis of right knee: Plan: POD #2 s/p right TKA with Dr. Myers 08/22/2024 From ortho standpoint doing well DVT proph - asa 81mg BID x 6 weeks ice, pain control prn Mild ANNY and urinary retention - see below (2) Anemia, chronic disease: Plan: baseline hemoglobin 9's/10's hemoglobin this am again acceptable at 9.8 -- mild drop 2nd to blood loss from surgery cont Ferrous Sulfate supplementation (3) Chronic kidney disease, stage 3 (moderate): Plan: Baseline creatinine around 1.381.55. Baseline CrCl ~30-40. Peak Cr 1.79 c/w mild ANNY. Possibly obstructive given the urinary retention. Possibly pre-renal in the setting of surgery. Creatinine improved today - now 1.66 (4) Depression with anxiety: Plan: cont home meds (5) Hyperlipidemia: Plan: not on meds for such (6) Acute urinary retention: Plan: day #2 of flomax 0.4mg qam unfortunately, despite attempts to avoid godfrey, he had a very large PVR last pm necessitating insertion of godfrey send home with godfrey keep flomax daily have him f/u with [facility] 7-10 days for godfrey management (7) Acute kidney injury: Plan: peak Cr 1.79 today - 1.66 baseline 1.3 to 1.4 suspect due to obstruction/urinary retention with godfrey in place suspect the creatinine will continue to improve next 2-3 days advise repeat BMP next week for stability Plan flomax script sent to pharmacy for patient nursing showed godfrey care; bag swapped for leg bag from medical standpoint ok for d/c home Admission and Anticipated Discharge Date Admission Date: August 22, 2024 Subjective overnight had a very large PVR and thus godfrey was placed he denies any dyspnea, chest pain, abd pain passing flatus eating well no nausea no emesis having right knee pain this am denies any dizziness or lightheadedness Review of Systems Review of Systems: CV - no chest pain, no orthopnea; chronic edema LLE pulm - no cough, wheezing, congestion Physical Exam Physical Exam: gen - NAD, looks well neck - no JVD mouth - MMM heart - RRR, s1 s2, no murmur lungs - CTA b/l abd - soft NT ND BS+; no HSM ext - right knee wrapped in AROLDO wrap; ice pack present; mild edema right foot; trace-1+ edema left foot (chronic per patient); pulses 2+ b/l psych - a/o x 3 Results & Data Results & Data Vital Signs (Past 12 Hours) Vital Signs Temp Pulse Resp BP Pulse Ox O2 Del Method 08/24/24 07:06 36.5 C 63 16 155/60 H 99 Room Air Laboratory Results Laboratory Results 08/24/24 06:57 Hgb 9.8 L Hct 29.4 L Sodium 139 Potassium 4.2 Chloride 108 H Carbon Dioxide 27 Anion Gap 4 BUN 36 H Creatinine 1.66 H Est Cr Clr Drug Dosing 32.1 eGFR 40.65 BUN/Creatinine Ratio 21.7 H Glucose 92 Estimat Average Glucose 108 Hemoglobin A1c 5.4 Calcium 8.9 PG Care Time/CCT Total # of Minutes Spent Total Time Spent with Patient: Total time spent is greater than 50% in coordination of care (as documented) at patient's floor/unit and/or counseling patient: Coding Level of Care Code 05205 SUB INP/OBS CARE 2/35MIN Diagnoses Primary osteoarthritis of right knee M17.11 Osteoarthritis type: primary Anemia, chronic disease D63.8 Chronic kidney disease, stage 3 (moderate) N18.30 Depression with anxiety F41.8 Hyperlipidemia E78.5 Acute urinary retention R33.8 Acute kidney injury N17.9 (1) Osteoarthritis of right knee Osteoarthritis type: primary Qualified Code(s): M17.11 - Unilateral primary osteoarthritis, right knee
--- NOTE | 2024-08-28 15:53 | Discharge Summary ---
Date of Service August 28, 2024 Admission HPI Per Admitting Provider 84-year-old male with severe bilateral knee osteoarthritis who has successful left knee replacement 12/14/2023. Principal Diagnosis Right knee osteoarthritis Discharge Data Allergies Allergy/AdvReac Type Severity Reaction Status Date / Time No Known Drug Allergies Allergy Verified 08/22/24 05:39 Consultations 08/22/24 12:58 Consult Hospitalist Routine Procedures Performed Operation Date: 08/22/24 07:00 Actual Procedures p Right Total Knee Arthroplasty(Right) - Nixon Myers MD Ordered Studies 08/22/24 05:00 US - OR guided needle placemen Routine Hospital Course (1) Osteoarthritis of right knee: Status post right knee replacement postop day #2. Patient had preop flexion contracture so was going to need physical therapy and encouragement to have his knee straightened out. I was able to obtain full range of motion intraoperatively so currently this is related to patient's discomfort. Pain meds as necessary. Continue PT efforts. With regard to discharge I will let medical team weigh in on his renal insufficiency however orthopedically he is ready to be discharged. Total Time Total Time Spent Total Time Spent (In Minutes): 30 Discharge Plan Discharge Items Patient Disposition: Home - Home Health Services Reason For Visit: Osteoarthritis Knee Right Discharge Diagnosis: Right knee osteoarthritis Urinary retention with placement of godfrey Elevated creatinine - peak was 1.79, improved to 1.6 at discharge - likely related to urinary retention Activity: Per Instructions section Non-emergency contact: Surgeon Call non-emergency contact if: your pain is not controlled, your pain is worsening and your temperature is above 101 Follow-up/Referrals: Margarito Bridges MD [Physician] - 09/03/24 9:30 am (Appointment is with Urology Nurse for a Voiding trial) Jaqueline Maldonado DO [Primary Care Provider] - 08/27/24 9:20 am Diet: Regular Ambulatory Orders: Basic Metabolic Panel (Routine) Timeframe: 1 Week Location: Determined by Patient Ordered By: Miguel Angel Umana Attending Provider Instructions: ACTIVITY RECOMMENDATIONS: SELF CARE INSTRUCTIONS AFTER TOTAL KNEE REPLACEMENT A. You may need to continue a physical therapy program after discharge from the hospital. There are several options available to you. Your doctor will assist you in selecting the best one for you. 1. An out-patient facility 3 times a week for therapy. 2. Home therapy for 1 to 2 weeks with outpatient therapy to follow. 3. Continue working on all exercises taught by physical therapy three times a day for 20 minutes on non-therapy days. Your goals should be to increase the bending of your knee to 90 degrees and beyond and to fully straighten your knee. Ice and elevate knee after exercise. B. Weight as tolerated with a walker or as instructed by your physician. C. It is okay to shower if minimal to no drainage from incision. No Baths. Do not soak wound. D. Make walking a part of your daily routine. Be up as much as comfortable with rest periods throughout the day. Rest with leg elevation is very important. Use the ice wrap frequently for the first 3-4 weeks. E. There are no restrictions on activities. You may ride in a car, shop, participate in catalyst unit operator and all social activities. F. Wear the long elastic stockings (GENESIS hose) 20 hours a day for one month after surgery. They can be removed several times a day for laundering and when showering. G. You may return to previous diet. H. JESSICA dressing: You have a JESSICA dressing on your surgical wound. It will remain in place for 7 days from surgery. You will be provided with a booklet with the do's and don'ts with the dressing in place. After 7 days, the dressing may be removed. If there is drainage from the surgical incision, you may cover the wound with dry dressings SPECIAL CARE INSTRUCTIONS: VERY IMPORTANT TO READ AND REVIEW A. Take Coumadin, Xarelto, Aspirin or Lovenox (blood thinning medications) as directed by your doctor. If on Coumadin, have a pro-time (blood test) drawn according to your doctor's instructions. This will tell the doctor how well the Coumadin is thinning your blood. B. There are a few signs you need to watch for after you are home. Call [facility] if you notice any of the followin. Increased severe knee pain. Some pain is expected especially when you exercise. 2. Increased swelling in your leg or knee; pain or swelling of the calf muscle in either lower leg. 3. Any redness or fluid drainage from the incision. 4. Shortness of breath or chest pain. 5. A Temperature of 101 degrees F or greater. C. Please call [facility] at if you have any concerns or questions about your operation or recovery. The doctor or his nurse will return your call promptly. D. You must take antibiotics before dental work, bladder, bowel or other surgery. Your doctor will provide you with a permanent care to carry describing this precaution. FOLLOW UP VISIT: If appointment is not already scheduled: Please call [facility] to make a follow-up appointment for 2 weeks after your surgery at . Addtl Inspector Line Provider Instructions: From Miguel Angel Espinosa Hospitalist - 1. take Tamsulosin 0.4mg each morning. This medication is for your prostate and may help facilitate removal of your catheter in the next couple of weeks. Most common side effect - dizziness. I have called this to your pharmacy for you. Start tomorrow morning, 08/25/24. 2. for constipation you may take 1 or both of the following [id number] medicines - * miralax one serving daily * senokot 2 tablets daily 3. godfrey catheter care - see handouts 4. have a repeat blood draw in 1 week; you can have this done at the [facility] office; you do not need to fast for this blood test. I will be rechecking your creatinine (kidney number) 5. follow-up with [facility] in 7-10 days to have your godfrey catheter removed and for a voiding trial Best wishes for a speedy recovery! Pending Studies at Discharge: No Stand-Alone Forms: My [facility] [employer], Smoking Cessation Medications and DC Order Prescriptions: New aspirin 81 mg tablet,delayed release (DR/EC) 81 mg PO BID Qty: 60 0RF cefadroxil 500 mg capsule 500 mg PO Q12H Qty: 28 0RF oxycodone 5 mg tablet 5 mg PO Q4H PRN (Reason: pain) Qty: 20 0RF acetaminophen [Tylenol Extra Strength] 500 mg tablet 1,000 mg PO Q8H Qty: 90 0RF tamsulosin 0.4 mg Capsule 0.4 mg PO QAM Qty: 30 1RF Continued potassium chloride 10 mEq tablet extended release 10 meq PO QAM Qty: 90 3RF Hold Instructions: Resume on 12/26/23. Do not take until you resume taking your lasix again. Caltrate 600-D Plus Minerals 600 mg calcium- 800 unit-50 mg tablet 1 tab PO QAM 90 Days Qty: 90 3RF magnesium chloride [Mag 64] 64 mg tablet,delayed release (DR/EC) 128 mg PO BID 90 Days Qty: 360 3RF (DME) compress.stocking,knee,reg,med Misc See Rx Instructions .ROUTE .MEDSUPPLY Qty: 2 0RF Rx Instructions: Medium compression 20-30mmHG; Dx: I87.2 duloxetine 30 mg capsule,delayed release(DR/EC) 30 mg PO QAM Qty: 30 5RF famotidine 20 mg tablet 20 mg PO BID Qty: 180 2RF ferrous sulfate [FeroSul] 325 mg (65 mg iron) tablet 325 mg PO Q OTHER DAY polyethylene glycol 3350 [Miralax] 17 gram powder in packet 17 g PO DAILY PRN (Reason: constipation) Qty: 5 0RF Discontinued aspirin 81 mg tablet,delayed release (DR/EC) 81 mg PO DAILY Krames/Other Patient Handouts: Oxycodone Oral Tablet, Tamsulosin Oral Capsule, Cefadroxil Oral Capsule, Leg Bag Care Dc, ED Godfrey Catheter, Care Admission Data Admit Date/Time: 08/22/24 09:51 Attending Provider: Nixon Myers Admit Provider: Nixon Myers Primary Care Provider: Jaqueline Maldonado Other Providers: Calvin Bustillos [facility] Other Interventions: Discharge Summary Assessment (RN) Last Done: 08/24/24 14:22
== END 2024-08-24 15:46 | disposition home health service (06) ==
LOC: 3W 05:11 → ASU 05:11